=== PATIENT | female | born 1950 | race Caucasian/White ===

== ENCOUNTER → 2020-01-21 11:56 | Outpatient (BNVA) | payer MEDICARE, SELFPAY | PROVIDERS: PCP Nurse Practitioner Family; Referring Provider Nurse Practitioner Family; Visit Provider Internal Medicine Cardiovascular Disease | DX: I35.1 Nonrheumatic aortic (valve) insufficiency (principal) | CPT/HCPCS: 99212 ==

== ENCOUNTER → 2020-02-12 13:43 | Outpatient (REF) | payer MEDICARE, SELFPAY ==
--- NOTE | 2020-02-12 13:46 | CA_ITS ---
Transthoracic Echocardiogram Patient (Last, First, Middle): Donna Hua E Gender: Female Date of : 1950 Age: 69 Procedure Date: 02/12/2020 Procedure Type: Transthoracic Echocardiogram Location: OP Height: 157.48 cm Weight: 79.83 kg BSA: 1.81 m2 Heart Rate: bpm BP: 124 / 77 mmHg Dye Box Operator: Referring MD: Kelechi Root MD Symptoms: I35.1 - Nonrheumatic aortic (valve) insufficiency Study Quality: Fair ECG Rhythm: Sinus Conclusions: - The left ventricular systolic function is low normal. The visually estimated ejection fraction is between 50-55%. - There is mild aortic valve regurgitation. Findings Left Ventricle Normal left ventricular cavity size. There is mildly increased left ventricular wall thickness. The left ventricular systolic function is low normal. The visually estimated ejection fraction is between 50-55%. There is no evidence of regional wall motion abnormalities. E/E prime ratio is <8, consistent with normal filling pressures. Evidence suggests grade I (mild) diastolic dysfunction. Right Ventricle Normal right ventricular cavity size and systolic function. Atria The left atrium is normal in size. The right atrium is normal in size. Aortic Valve The aortic valve was not well visualized. There is no aortic valve stenosis. There is mild aortic valve regurgitation. Mitral Valve The mitral valve appears normal. There is trace mitral valve regurgitation. There is no mitral valve stenosis. Pulmonic Valve The pulmonic valve was not well visualized. Tricuspid Valve Normal tricuspid valve structure. There is trace tricuspid valve regurgitation. The pulmonary artery systolic pressure is normal. Great Vessels The aortic annulus, sinuses of valsalva, and asc aorta are normal in size. Venous The inferior vena cava is normal in size and collapses greater than 50% with inspiration. Pericardium/Pleural There is no evidence of pericardial effusion. Prior Study Comparison No significant change compared to prior study dated: 03/23/2019. LVEF appears similar on visual comparison of images. Recommendations, Care & Conclusions Recommend contrast in the future to improve endocardial definition. Measurements 2D Linear Measurements IVSd: 1.24 0.6-0.9/0.6-1.0 cm LVIDd: 3.66 3.9-5.3/4.2-5.9 cm LVIDd Index: 2.02 2.4-3.2/2.2-3.1 cm/m2 LVIDs: 2.33 2.0-3.6 cm LVPWd: 1.22 0.7-1.1 cm Ao Root: 3.20 2.1-3.5 cm LA Diam: 2.60 2.7-3.8/3.0-4.0 cm LAIDs Index: 1.44 1.5-2.3 cm/m2 LV Mass: 187.40 67-162/88-224 g LV Mass Index: 103.54 43-95/49-115 g/m2 LVOT Diam: 2.20 3.0+(-)1.3 cm 2D Systolic Function EF 4C: 30.30 >55% EF 2C: 49.70 >55% Mitral Valve MV Pk E: 0.45 MV PK A: 0.63 MV Decel Time: 236.00 E/A: 0.70 E'Lateral: 9.77 E'Medial: 5.32 E/E' Med: 8.50 E/E' Lat: 4.60 PHT: 69.00 MVA PHT: 3.19 Decel Queens: 1.91 Aortic Valve AoV Pk Ke: 1.18 AoV Mn Ke: 0.82 AoV VTI: 0.25 AoV Pk Grad: 6.00 Aov Mn Grad: 3.00 BEATA Cont.VTI: 3.09 LVOT LVOT Pk Ke: 0.98 LVOT Mn Ke: 0.61 LVOT VTI: 0.20 LVOT Pk Grad: 4.00 LVOT Mn Grad: 2.00 LVOT Diam: 2.20 LVOT Area: 3.80 Diastolic Function MV Pk E: 0.45 MV Pk A: 0.63 E/A: 0.70 E'Medial: 5.32 E/E' Med: 8.50 E' Laterial: 9.77 E/E' Lat: 4.60 Tricuspid Valve TR Pk Ke: 2.16 TR Pk Grad: 19.00 RA Press: 3.00 RVSP: 21.00 Great Vessels Aorta Ao Root-2D: 3.20 2.0-3.7 cm Pulmonary Valve PV Pk Ke: 0.86 Peak PV Grad: 3.00 Updated in Other Vendor System with Status of Final Winston Saul MD electronically signed on 02/12/2020 4:30:17 PM with status of Final
== END ==
LOC: HO.CARD 13:43
PROVIDERS: PCP Nurse Practitioner Family; Visit Provider Internal Medicine Cardiovascular Disease
DX: I35.1 Nonrheumatic aortic (valve) insufficiency (principal)
CPT/HCPCS: 93306

== ENCOUNTER 2020-04-02 11:00 | Outpatient (RCR) | payer MEDICARE, SELFPAY | END 2020-04-02 16:47 | disposition other institution (70) | LOC: HO.PT 11:00 | PROVIDERS: Visit Provider Nurse Practitioner Primary Care | DX: M54.42 Lumbago with sciatica, left side (principal); M54.41 Lumbago with sciatica, right side | CPT/HCPCS: 97110; 97162 ==

== ENCOUNTER 2020-07-03 08:43 | Outpatient (REF) | payer MEDICARE, SELFPAY ==
[2020-07-03 08:48] VITALS: BP 150/73; PULSE 82; RESP 16; TEMP 36.4; O2SAT 96
[2020-07-03 08:50] VITALS: BMI 32.7
[2020-07-03 09:12] VITALS: BP 142/71; PULSE 82; RESP 16; O2SAT 97
--- NOTE | 2020-07-03 10:31 | OP_ITS ---
SURGEON: Benny Sanabria MD INDICATIONS: G-tube malfunction. PREOPERATIVE DIAGNOSIS: POSTOPERATIVE DIAGNOSIS: PROCEDURE PERFORMED: G-tube replacement. ESTIMATED BLOOD LOSS: COMPLICATIONS: ANESTHESIA: ASSISTANTS: SPECIMENS: MEDICATIONS: None. DESCRIPTION OF PROCEDURE: History and physical performed. The risks and benefits of the procedure were explained to the patient. Informed consent was obtained. The patient was placed on the exam table in the supine position. The G-tube site was examined and found to be intact with some mild erythema at the site. The old G-tube was removed and a new 18-Swazi replacement G-tube was placed after lubricating the tip of the new G-tube. The balloon was inflated with 10 mL water and aspiration confirmed intragastric placement. Bacitracin and dry sterile dressing were applied. She tolerated the procedure well. IMPRESSION: G-tube replacement. RECOMMENDATION: Follow up as needed. MD NNA Clifford/MODL / [id number]
== END 2020-07-03 08:44 | disposition home or self-care (01) ==
LOC: HO.MS 08:43
PROVIDERS: Visit Provider Internal Medicine Gastroenterology
PROC: (CPT 43762; principal; 2020-07-03 09:00)
DX: K94.23 Gastrostomy malfunction (principal); Z79.899 Other long term (current) drug therapy; Z91.040 Latex allergy status
CPT/HCPCS: 43762

== ENCOUNTER 2020-10-14 11:00 | Outpatient (RCR) | payer MEDICARE, SELFPAY | END 2020-10-30 18:18 | disposition home or self-care (01) | LOC: HO.PT 11:00 | PROVIDERS: PCP Nurse Practitioner Primary Care; Visit Provider Nurse Practitioner Primary Care | DX: M54.41 Lumbago with sciatica, right side (principal) | CPT/HCPCS: 97110; 97112; 97150; 97162 ==

== ENCOUNTER 2021-01-05 13:03 | Outpatient (REF) | payer MEDICARE, SELFPAY ==
--- NOTE | ~2021-01-05 | MM_ITS ---
EXAMINATION: MM SCREENING DIGITAL BREAST TOMOSYNTHESIS, BILATERAL CLINICAL INFORMATION: Screening. Asymptomatic. The lifetime risk of breast cancer based on the Tyrer-Cuzick Model is 3%. COMPARISON: Mammography: 10/15/2019, 10/09/2018, 09/07/2017, 07/22/2016 TECHNIQUE: Digital breast tomosynthesis is performed in both the craniocaudal and mediolateral oblique views along with computer-aided detection (CAD). Synthesized 2D images are generated from the tomosynthesis. FINDINGS: There are scattered areas of fibroglandular density (ACR BI-RADS breast composition Category b). There are no significant masses, abnormal calcifications, or other abnormalities. Parenchymal pattern is similar to prior studies. No developing density. No significant changes. MM/MM tomosynthesis screening BI IMPRESSION: No mammographic evidence of malignancy. ASSESSMENT: BI-RADS 1: Negative RECOMMENDATION: Routine annual mammography screening. This patient's information was entered into a reminder system with a target due date for their next mammogram.
== END 2021-01-05 13:04 | disposition home or self-care (01) ==
LOC: HO.MAMMO 13:03
PROVIDERS: PCP Nurse Practitioner Primary Care; Visit Provider Nurse Practitioner Primary Care
DX: Z12.31 Encounter for screening mammogram for malignant neoplasm of breast (principal)
CPT/HCPCS: 77063; 77067

== ENCOUNTER → 2021-01-21 10:49 | Outpatient (BNVA) | payer MEDICARE, SELFPAY | PROVIDERS: PCP Nurse Practitioner Primary Care; Referring Provider Nurse Practitioner Primary Care; Visit Provider Internal Medicine Cardiovascular Disease | DX: I35.1 Nonrheumatic aortic (valve) insufficiency (principal) | CPT/HCPCS: 93005; 99212 ==

== ENCOUNTER 2021-02-05 12:48 | Outpatient (REF) | payer MEDICARE, SELFPAY ==
--- NOTE | ~2021-02-05 | MM_ITS ---
EXAMINATION: BONE DENSITOMETRY CLINICAL INDICATION: Asymptomatic menopausal state. COMPARISON: Previous BD dated 05/11/2018 and baseline BD dated 04/26/2006. TECHNIQUE: Using a [employer] DXA System (software version: 13.1) manufactured by [employer], dual-energy x-ray absorptiometry was performed of the lumbar spine and left hip. The images are of good technical quality. Summary results are attached. FINDINGS: AP SPINE L1-L4: Current: BMD 1.046 g/cm2, Z-score 0.2, T-score -1.1, osteopenia, 3.3% decrease from previous, 9.3% decrease from baseline (<5% change is not significant). Prior: BMD 1.082 g/cm2. Baseline: BMD 1.153 g/cm2. LEFT FEMUR, NECK: Current: BMD 0.982 g/cm2, Z-score 1.1, T-score -0.4, normal. Prior: BMD 0.926 g/cm2. Baseline: BMD 1.068 g/cm2. LEFT FEMUR, TOTAL: Current: BMD 1.037 g/cm2, Z-score 1.5, T-score 0.2, normal, 5.0% increase from previous, 6.7% decrease from baseline (<5% change is not significant). Prior: BMD 0.988 g/cm2. Baseline: BMD 1.111 g/cm2. IDENTIFIED RISK FACTORS: Menopause, rheumatoid arthritis. HISTORY OF FRACTURE: None listed. MEDICATIONS: None listed. MM/XR DEXA axial skeleton IMPRESSION: 1. DIAGNOSIS: Osteopenia based on the lowest T-score value of -1.1 in the lumbar spine applying World Health Organization criteria. 2. 10-YEAR FRACTURE RISK PREDICTION, FRAX: Major osteoporotic fracture (clinical spine, forearm, hip or shoulder) 5.5%. Hip fracture 0.5%. 3. Treatment Recommendations: NOF guidelines recommend consideration for treatment in postmenopausal women and men age 50 and older presenting with the following: -A hip or vertebral (clinical or morphometric) fracture. -T-score less than or equal to -2.5 at the femoral neck or spine after appropriate evaluation to exclude secondary causes. -Low bone mass at the hip or spine and a 10-year fracture probability by FRAX of greater than or equal to 3% for hip fracture or greater than or equal to 20% for major osteoporotic fracture based on the [place] adapted WHO algorithm. 4. Other Recommendations: All treatment decisions require clinical judgment and consideration of individual patient factors, including patient preferences, comorbidities, previous drug use, risk factors not captured in the FRAX model (e.g. frailty, falls, vitamin D deficiency, increased bone turnover, interval significant decline in bone density) and possible under or overestimation of fracture risk by FRAX. Additional medical evaluation for secondary cause of low bone mineral density may be appropriate. FUTURE SCAN RECOMMENDATION: People with diagnosed cases of osteoporosis or at high risk for fracture should have regular bone mineral density tests. For patients eligible for Medicare, routine testing is allowed once every 2 years. The testing frequency can be increased to one year for patients who have rapidly progressing disease, those who are receiving or discontinuing medical therapy to restore bone mass, or have additional risk factors.
== END 2021-02-05 12:49 | disposition home or self-care (01) ==
LOC: HO.MAMMO 12:48
PROVIDERS: Visit Provider Nurse Practitioner Primary Care
DX: Z13.820 Encounter for screening for osteoporosis (principal); M85.80 Other specified disorders of bone density and structure, unspecified site; Z78.0 Asymptomatic menopausal state; M05.9 Rheumatoid arthritis with rheumatoid factor, unspecified
CPT/HCPCS: 77080

== ENCOUNTER 2021-03-26 08:52 | Outpatient (REF) | payer MEDICARE, SELFPAY ==
[2021-03-26 08:59] VITALS: BMI 31.2
[2021-03-26 09:00] VITALS: BP 124/73; PULSE 87; RESP 16; TEMP 36.6; O2SAT 97
[2021-03-26 09:40] VITALS: BP 139/73; PULSE 85; RESP 16; O2SAT 98
--- NOTE | 2021-03-26 11:40 | OP_ITS ---
SURGEON: Benny Sanabria MD INDICATIONS: Dysphagia and G-tube malfunction. PREOPERATIVE DIAGNOSIS: POSTOPERATIVE DIAGNOSIS: PROCEDURE PERFORMED: ESTIMATED BLOOD LOSS: COMPLICATIONS: ANESTHESIA: ASSISTANTS: SPECIMENS: PROCEDURE: G-tube replacement. MEDICATIONS: None. DESCRIPTION OF PROCEDURE: History and physical performed. The risks and benefits of the procedure were explained to the patient. Informed consent was obtained. The patient was placed supine on the exam table. The G-tube site was inspected. There was some mild erythema around the G-tube site where the bumper abutted the skin. The nonfunctioning G-tube was removed after the balloon was deflated and a new 18-Maori replacement tube was tested and lubricated. The tube was inserted into the G-tube tract and the balloon was inflated with 10 cc of saline. Position was checked with the tube being flushed first with air and then with saline. The tube flushed well. The site was secured with bacitracin ointment and a dry sterile dressing. IMPRESSION: G-tube replacement. RECOMMENDATION: 1. Follow up as needed. 2. The tube may be replaced on a p.r.n. basis. MD NNA Clifford/BECKY / [id number] MTDD
== END 2021-03-26 08:53 | disposition home or self-care (01) ==
LOC: HO.MS 08:52
PROVIDERS: PCP Nurse Practitioner Primary Care; Visit Provider Internal Medicine Gastroenterology
PROC: (CPT 43762; principal; 2021-03-26 09:30)
DX: K94.23 Gastrostomy malfunction (principal); R13.10 Dysphagia, unspecified; Y83.3 Surgical operation with formation of external stoma as the cause of abnormal reaction of the patient, or of later complication, without mention of misadventure at the time of the procedure; Y73.1 Therapeutic (nonsurgical) and rehabilitative gastroenterology and urology devices associated with adverse incidents; Y92.9 Unspecified place or not applicable; Z91.040 Latex allergy status
CPT/HCPCS: 43762

== ENCOUNTER 2021-04-09 15:50 | Emergency (ER) | payer MEDICARE, SELFPAY ==
[2021-04-09 15:54] VITALS: PULSE 82; RESP 18; TEMP 36.7; O2SAT 98; BMI 31.1
--- NOTE | 2021-04-09 17:22 | ED_ITS ---
HPI - General Adult General Chief complaint: General Medical Stated complaint: Rash Time Seen by Provider: 04/09/21 16:59 Source: patient Mode of arrival: ambulatory History of Present Illness HPI narrative: 70-year-old female with a past medical history G2 s/p replacement on 03/26, presenting to the ED complaining of pruritic abdominal rash x2 weeks. Reports rash started after G-tube replacement. Denies complications of G-tube, drainage from rash, fever, chills, new exposures/lotions or detergents, new dressings. Patient with known allergy to latex Onset (ago): week(s) Location: abdomen Related Data Home Medications Medication Instructions Recorded Confirmed clonazepam 0.5 mg tablet 0.5 mg PO DAILY PRN 01/21/20 01/21/21 fluticasone propionate 110 0 mcg INHALATION 01/21/20 01/21/21 mcg/actuation HFA aerosol inhaler fluticasone propionate 50 0 mcg INTRANASAL 01/21/20 01/21/21 mcg/actuation nasal spray,suspension lansoprazole 30 mg capsule,delayed 30 mg PO DAILY 01/21/20 01/21/21 release nortriptyline 25 mg capsule 25 mg PO BEDTIME 01/21/20 01/21/21 Previous Rx's Medication Instructions Recorded triamcinolone acetonide 0.025 % 1 appl TOPICAL BID #80 g 04/09/21 topical ointment Allergies Allergy/AdvReac Type Severity Reaction Status Date / Time latex [LATEX] Allergy Unknown RASH Unverified 12/06/19 17:27 Review of Systems Review of Systems: Constitutional: No Fever, No Chills ENT/Mouth: No Ear Pain, No Nasal Congestion, No sore throat, No Rhinorrhea, No Swallowing Difficulty Cardiovascular: No Chest Pain, No SOB Respiratory: No Cough Gastrointestinal: No Nausea, No Vomiting, No Diarrhea, No Abdominal pain Musculoskeletal: No joint pain, No Myalgias, No Joint Swelling Skin: No Skin Lesions, + rash Neuro: No Weakness, No Numbness, No Paresthesias Yes all other systems are reviewed and are negative [facility] Past Medical History Attestation statement: The following information was validated with the patient. Medical History Feeding by G-tube Surgical History H/O section H/O neck surgery History of throat surgery Family History Family History Father No problems noted. Mother No problems noted. Social History Social History Advance Directives: No Advance Directives Information Provided: No Physical Exam Vital Signs: Vital Signs: Last Vital Signs Temp 98.0 F 04/09/21 15:54 Pulse 82 04/09/21 15:54 Resp 18 04/09/21 15:54 Pulse Ox 98 04/09/21 15:54 BMI result Body Mass Index 31.1 Const: General: cooperative, healthy appearing, comfortable and no acute distress Orientation/consciousness: patient oriented x3 Limitations: no limitations HENMT: Other: No mucous membrane involvement Head: Yes normal to inspection, Yes normocephalic and Yes atraumatic Ears: hearing grossly normal bilaterally General nose exam: Normal external nose present Face and sinus: Yes normal facial exam Mouth: Normal oral and palatal mucosa present, no drooling and no muffled voice Eyes: General: appearance normal, both eyes and all related structures EOM: EOMs intact bilaterally Neck: Neck: Yes normal visual inspection and Yes no meningeal signs Resp: Effort & Inspection: normal respiratory effort, able to speak in complete sentences, not labored and no stridor Auscultation: clear to auscultation bilaterally Cardio: Rate: regular rate Heart sounds: S1 normal heart sound present and S2 normal heart sound present GI: Inspection: Yes normal to inspection Palpation (GI): Soft to palpation, nontender, no guarding and not rigid Skin: Other: + coalescing maculopapular rash noted to abdomen surrounding G- tube site and under bra line. No pustules. No warmth/fluctuance/induration, no scaling Rashes: rashes noted Wounds: no wounds Neuro: General: patient oriented x3 and no meningeal signs Gait exam (Neuro): Normal gait present Extrem: General: Yes normal to inspection Medical Decision Making MDM Narrative Medical decision making narrative: 70-year-old female with a past medical history G2 s/p replacement on 03/26, presenting to the ED complaining of pruritic abdominal rash x2 weeks. On exam vital signs stable, NAD, physical exam as above consistent with contact/irritant dermatitis. Suspected from dressing applied after G-tube replacement vs tape or other topical agents. Not c/w tinea Plan: Topical steroids Medical Records Medical records reviewed: Yes I reviewed the patient's medical records. Lab Data Lab results reviewed: Yes I reviewed the patient's lab results. Discharge Plan Discharge Clinical Impression: Contact dermatitis Qualifiers: Contact dermatitis type: irritant Contact dermatitis trigger: unspecified trigger Qualified Code(s): L24.9 - Irritant contact dermatitis, unspecified cause Patient Disposition: Home, Self-Care Instructions: Contact Dermatitis (ED) Additional Instructions: You have contact/irritative dermatitis. Triamcinolone is a topical steroid, apply as directed. Avoid application too close to G-tube site if area begins to look infected, is red, there is drainage, it is spreading please return to the emergency department. Please follow-up with her primary care doctor Avoid any dressing application to area for the next 5-7 days Prescriptions: New triamcinolone acetonide 0.025 % ointment 1 appl topical BID Qty: 80 RF: 0 No Action lansoprazole 30 mg capsule,delayed release(DR/EC) 30 mg PO DAILY RF: 0 clonazepam 0.5 mg tablet 0.5 mg PO DAILY PRNRF: 0 nortriptyline 25 mg capsule 25 mg PO BEDTIME RF: 0 fluticasone propionate 50 mcg/actuation spray,suspension 0 mcg intranasal RF: 0 Flovent HFA 110 mcg/actuation HFA aerosol inhaler 0 mcg inhalation RF: 0 Referrals: Carolina Robbins NP [Primary Care Provider] - 3 days
== END 2021-04-09 17:58 | disposition home or self-care (01) ==
PROVIDERS: Emergency Provider Internal Medicine; PCP Nurse Practitioner Primary Care
DX: L24.9 Irritant contact dermatitis, unspecified cause (principal); L29.9 Pruritus, unspecified
CPT/HCPCS: 99283

== ENCOUNTER → 2021-06-24 12:31 | Outpatient (REF) | payer OTHER, SELFPAY ==
--- NOTE | 2021-06-24 12:37 | ECG_ITS ---
Hook-up date: 2021-06-24 12:06:00 Duration: 25:45:00 Test Indications: PALPITATIONS Medications: [id number] QRS complexes 8 Ventricular ectopics which represent <1 % of total QRS comp. 535 Supraventricular ectopics which represent <1 % of total QRS comp. * Paced QRS complexs which represent % of total QRS comp. VENTRICULAR ECTOPY 8 Isolated 0 Bigeminal Cycles 0 Couplets 0 Runs 0 Beats in Runs * Beats LONGEST at * BPM at :: -- * Beats FASTEST at * BPM at :: -- SUPRAVENTRICULAR ECTOPY 517 Isolated 9 Couplets 0 Runs 0 Beats in Runs * Beats LONGEST at * BPM at :: -- * Beats FASTEST at * BPM at :: -- HEART RATES 62 MIN at 01:21:36 2021-06-25 87 AVG 131 MAX at 10:33:23 2021-06-25 LONGEST RR 1.0000 secs at 01:19:21 2021-06-25 S-T LEVELS Channel 1 - 128 mm at 12:06:00 2021-06-24 - 128 mm at 12:06:00 2021-06-24 Channel 2 - 128 mm at 12:06:00 2021-06-24 - 128 mm at 12:06:00 2021-06-24 Channel 3 - 128 mm at 03:12:51 -- - 128 mm at 03:12:51 Basic rhythm Normal sinus rhythm No long pause or profound bradycardia Occasional Premature atrial complexes No diary submitted Referred By: Carolina Robbins Overread By: VIDYA DRAKE MD
== END ==
LOC: HO.CARD 12:31
PROVIDERS: Visit Provider Nurse Practitioner Primary Care
DX: R00.2 Palpitations (principal)
CPT/HCPCS: 93225; 93226

== ENCOUNTER 2021-07-21 10:07 | Day surgery (SDC) | payer OTHER, SELFPAY ==
[2021-07-16 11:54] VITALS: BMI 31.4
--- NOTE | 2021-07-16 13:25 | HO.ANESPROP2 ---
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 Mother No problems noted. 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 If so, by whom?: No Are you DNR?: No Advance Directives: No Advance Directives Information Provided: Yes Advance Directives on File: No Nutrition Risks: Receiving home tube feeding or CPN Meds Allergies Allergy/AdvReac Type Severity Reaction Status Date / Time latex [LATEX] Allergy Unknown RASH Verified 07/16/21 11:48 Home Medications Medication Instructions Recorded Confirmed Last Taken Type clonazepam 0.5 mg tablet 0.5 mg PO DAILY PRN 01/21/20 07/16/21 Unknown History fluticasone propionate 110 2 puff INHALATION Q4-6H PRN 01/21/20 07/16/21 Unknown History mcg/actuation HFA aerosol inhaler fluticasone propionate 50 1 spray INTRANASAL BID PRN 01/21/20 07/16/21 Unknown History mcg/actuation nasal spray,suspension lansoprazole 30 mg capsule,delayed 30 mg PO DAILY 01/21/20 01/21/21 Unknown History release nortriptyline 25 mg capsule 25 mg PO BEDTIME 01/21/20 07/16/21 Unknown History Exam Exam Date and Time: July 16, 2021 1325 Height,Weight and Vital Signs: Height 5 ft 2 in Weight 78.018 kg Narrative Narrative: EKG 01/2021 NSR 90/min, rightward axis, Nonspecific ST changes, QTc 445 msec. ECHO 01/2020 Conclusions: - The left ventricular systolic function is low normal.? The ? ? visually estimated ejection fraction is between 50-55%.? - There is mild aortic valve regurgitation.? Holter 06/2021 Basic rhythm Normal sinus rhythm No long pause or profound bradycardia Occasional Premature atrial complexes No diary submitted Assessment and Plan Assessment Anesthesia Assessment: Chart Reviewed Documented by User: Bárbara Woodard MD 07/21/21 12:51 [facility] Past Medical History Medical History (Updated 07/16/21 @ 11:57 by Mari Montana RN) Asthma Degenerative joint disease Dysphagia Feeding by G-tube Gastritis GERD (gastroesophageal reflux disease) History of palpitations Hx of cataract Paraganglioma Urinary incontinence Family History Family History Father No problems noted. Mother No problems noted. 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 If so, by whom?: No Are you DNR?: No Advance Directives: No Advance Directives Information Provided: Yes Advance Directives on File: No Nutrition Risks: Receiving home tube feeding or CPN Meds Allergies Allergy/AdvReac Type Severity Reaction Status Date / Time latex [LATEX] Allergy Unknown RASH Verified 07/16/21 11:48 Home Medications Medication Instructions Recorded Confirmed Last Taken Type clonazepam 0.5 mg tablet 0.5 mg PO DAILY PRN 01/21/20 07/16/21 Unknown History fluticasone propionate 110 2 puff INHALATION Q4-6H PRN 01/21/20 07/16/21 Unknown History mcg/actuation HFA aerosol inhaler fluticasone propionate 50 1 spray INTRANASAL BID PRN 01/21/20 07/16/21 Unknown History mcg/actuation nasal spray,suspension lansoprazole 30 mg capsule,delayed 30 mg PO DAILY 01/21/20 01/21/21 Unknown History release nortriptyline 25 mg capsule 25 mg PO BEDTIME 01/21/20 07/16/21 Unknown History Exam Height,Weight and Vital Signs: Height 5 ft 2 in Weight 78.018 kg Vital Signs Temp Pulse Resp BP Pulse Ox 07/21/21 10:32 97.2 F 79 18 124/72 95 Airway Mallampati Class: III TM Dist: >3cm Neck ROM: Full Denture: Upper Loose/Missing/Broken Teeth: Yes (Only few teeth bottom) Heart: RRR Lungs: CTAB Assessment and Plan Assessment Anesthesia Assessment: Anesthesia Plan Discussed Final Anesthetic Review Family History of Problems with Anesthesia: No History of Problems with Anesthesia: No NPO: Yes ASA Class: III Final Preanesthetic Review: No Changes in Pt Med Stat, Meds/Allgs Chart Reviewed, Consent Obtained/Reviewed and Anes Risks/Benef Reviewed Patient Risk: Intermediate Procedure Risk: Low Assessment/Block/Sedation in SS: Assess/Block/Sedation-SS Anesthetic Plan Anesthetic Plan: MAC: Disposition: Standard PACU
[2021-07-21 10:32] VITALS: BP 124/72; PULSE 79; RESP 18; TEMP 36.2; O2SAT 95
[2021-07-21] MEDS: Lactated Ringers 1,000 ML 100 ML IVCONT (10:54)
--- NOTE | 2021-07-21 12:33 | MHC.SHP ---
Pre-Procedural Eval Section A Date of Service: 07/21/21 Section B Chief Complaint: screening Details of Present Illness: see H&P no changes Relevant Family History (Specify if Yes): No Relevant Social History: None Present Medications: see Short Stay Collaborative assessment Medical History: No relevant PMH History of Previous Operations: No relevant previous surgery Allergies: Allergies Allergy/AdvReac Type Severity Reaction Status Date / Time latex [LATEX] Allergy Unknown RASH Verified 07/16/21 11:48 Review of Systems Sugical H&P ROS: Negative: Constitution, Cardiovascular, Respiratory, Neurological, Psychiatric, Hem-Onc, Allergic/Immunologic, Gastrointestinal, Genitourinary, Musculoskeletal, Integumentary, Endocrine and Eyes/Ears/Nose/Throat Exam Surgical H&P Exam: Normal: HEENT, Normal: Heart, Normal: Lungs, Normal: Extremities, Normal: Abdomen, Normal: Skin and Normal: Neurological Plan Diagnosis/Plan: Unchanged I have reviewed the history and physical and performed a pertinent physical examination on my patient. No changes have occurred unless specified.
--- NOTE | 2021-07-21 13:17 | PM.OP ---
Brief Operative Note Date of Service: 07/21/21 Pre-op diagnosis: screening Post-op diagnosis: same (colon polyp) Procedure: colonoscopy Surgeon: Benny Sanabria Anesthesia: MAC Was an Product Sales Representative used for this Procedure?: No Estimated blood loss (mL): 2 Pathology: none sent (polyp x1) Condition: stable Disposition: PACU
[2021-07-21 13:20] VITALS: BP 129/79; PULSE 77; RESP 16; TEMP 36.8; O2SAT 98
[2021-07-21 13:35] VITALS: BP 133/72; PULSE 70; RESP 18; O2SAT 97
[2021-07-21 13:54] VITALS: BP 144/71; PULSE 71; RESP 20; TEMP 37.1; O2SAT 97
--- NOTE | 2021-07-22 00:22 | OP_ITS ---
SURGEON: Benny Sanabria MD INDICATIONS: Colon cancer screening and prior history of adenomatous colon polyps. PREOPERATIVE DIAGNOSIS: POSTOPERATIVE DIAGNOSIS: PROCEDURE PERFORMED: Colonoscopy to the terminal ileum with snare polypectomy. ESTIMATED BLOOD LOSS: COMPLICATIONS: ANESTHESIA: ASSISTANTS: SPECIMENS: MEDICATIONS: Monitored anesthesia care. DESCRIPTION OF PROCEDURE: History and physical performed. The risks and benefits of the procedure were explained to the patient. Informed consent was obtained. The patient was placed in the left lateral decubitus position. A digital rectal exam was performed and was found to be normal. The Olympus pediatric video colonoscope was introduced into the rectum and advanced to the cecum without difficulty. The cecum was identified by transillumination, palpation, and identification of the ileocecal valve. Examination was performed. The scope was removed. She tolerated the procedure well. She returned to the recovery area in stable condition. FINDINGS: The terminal ileum was normal. The visualized colonic mucosa was normal. The quality of the prep was good. In the cecum just above the ileocecal valve was an 8 mm sessile polyp, which was removed with a snare. The base was cauterized. The polyp was recovered via suction. A less than 5 mm polyp at 65 cm was biopsied. No other polyps were identified. Retroflexed examination showed some internal hemorrhoids. IMPRESSION: Colon polyp. RECOMMENDATION: Follow up the biopsy results. MD NAN Clifford/BECKY / [id number] MTDD
== END 2021-07-21 14:31 | disposition home or self-care (01) ==
PROVIDERS: PCP Nurse Practitioner Primary Care; Visit Provider Internal Medicine Gastroenterology
PROC: 0DJD8ZZ Inspection of Lower Intestinal Tract, Via Natural or Artificial Opening Endoscopic (ICD-10-PCS; CPT 45378; principal; 2021-07-21 11:40)
DX: Z12.11 Encounter for screening for malignant neoplasm of colon (principal); Z86.010 Personal history of colon polyps; D12.0 Benign neoplasm of cecum; K63.5 Polyp of colon; K64.8 Other hemorrhoids; K21.9 Gastro-esophageal reflux disease without esophagitis; Z93.1 Gastrostomy status; J45.909 Unspecified asthma, uncomplicated; R32 Unspecified urinary incontinence; J38.00 Paralysis of vocal cords and larynx, unspecified; R13.10 Dysphagia, unspecified; Z86.03 Personal history of neoplasm of uncertain behavior; Z79.899 Other long term (current) drug therapy; Z91.040 Latex allergy status
CPT/HCPCS: 45385; 88305

== ENCOUNTER 2021-09-08 14:50 | Outpatient (REF) | payer OTHER, SELFPAY ==
--- NOTE | ~2021-09-08 | XR_ITS ---
EXAMINATION: XR CHEST CLINICAL INFORMATION: Shortness of breath COMPARISON: Previous chest x-ray July 2018 TECHNIQUE: 2 views of the chest were obtained. FINDINGS: No significant abnormality is noted involving the heart, lungs, mediastinum, bony thorax or soft tissues. XR/XR chest 2V IMPRESSION: Unremarkable examination.
--- NOTE | ~2021-09-08 | XR_ITS ---
EXAMINATION: XR ABDOMEN COMPLETE CLINICAL INDICATION: Presence of other specified devices COMPARISON: Previous x-ray June 2018 TECHNIQUE: 2 views of the abdomen. FINDINGS: There is a G-tube projects over the stomach. There are no dilated loops of bowel. There is no evidence of free air. There are degenerative changes of the lower lumbar spine. XR/XR abdomen min 2V IMPRESSION: G-tube projects over stomach.
== END 2021-09-08 14:51 | disposition home or self-care (01) ==
LOC: HO.XRAY 14:50
PROVIDERS: PCP Nurse Practitioner Primary Care; Visit Provider Emergency Medicine
DX: R06.02 Shortness of breath (principal); Z93.1 Gastrostomy status
CPT/HCPCS: 71046; 74019

== ENCOUNTER 2022-01-15 10:16 | Outpatient (REF) | payer OTHER, SELFPAY ==
--- NOTE | ~2022-01-15 | MM_ITS ---
EXAMINATION: MM SCREENING DIGITAL BREAST TOMOSYNTHESIS, BILATERAL CLINICAL INFORMATION: Screening. Asymptomatic. The lifetime risk of breast cancer based on the Tyrer-Cuzick Model is 3%. COMPARISON: Mammography: 01/05/2021, 10/15/2019, 10/09/2018 TECHNIQUE: Digital breast tomosynthesis is performed in both the craniocaudal and mediolateral oblique views along with computer-aided detection (CAD). Synthesized 2D images are generated from the tomosynthesis. FINDINGS: There are scattered areas of fibroglandular density (ACR BI-RADS breast composition Category b). There are no significant masses, abnormal calcifications, or other abnormalities. Parenchymal pattern is similar to prior studies. There is no developing density or architectural abnormality. The axilla and skin contours are unremarkable. No significant changes. MM/MM tomosynthesis screening BI IMPRESSION: No mammographic evidence of malignancy. ASSESSMENT: BI-RADS 1: Negative RECOMMENDATION: Routine annual mammography screening. This patient's information was entered into a reminder system with a target due date for their next mammogram.
== END 2022-01-15 10:17 | disposition home or self-care (01) ==
LOC: HO.MAMMO 10:16
PROVIDERS: Visit Provider Nurse Practitioner Primary Care
DX: Z12.31 Encounter for screening mammogram for malignant neoplasm of breast (principal)
CPT/HCPCS: 77063; 77067

== ENCOUNTER → 2022-04-28 13:00 | Outpatient (BNVA) | payer OTHER, SELFPAY | PROVIDERS: PCP Nurse Practitioner Primary Care; Referring Provider Nurse Practitioner Primary Care; Visit Provider Internal Medicine Cardiovascular Disease | DX: I35.1 Nonrheumatic aortic (valve) insufficiency (principal) | CPT/HCPCS: 93005; 99212 ==

== ENCOUNTER 2022-05-05 19:58 | Emergency (ER) | payer OTHER, SELFPAY ==
--- NOTE | ~2022-05-05 | XR_ITS ---
EXAMINATION: XR ABDOMEN KUB CLINICAL INDICATION: G-tube placement. Gastrografin injected. COMPARISON: 09/08/2021 TECHNIQUE: AP view of the abdomen. FINDINGS: Gastrostomy tube in place. Contrast fills the stomach, consistent with intragastric positioning. Contrast extends throughout a portion of the small bowel. No bowel obstruction. The lung bases are clear. No acute osseous abnormality. XR/XR KUB IMPRESSION: Intragastric positioning of the gastrostomy tube.
[2022-05-05 21:06] VITALS: BP 147/73; PULSE 79; RESP 18; TEMP 36.6; O2SAT 96; BMI 32.1
[2022-05-06] VITALS: BP 162/77; PULSE 71; RESP 16; TEMP 36.6; O2SAT 98
--- NOTE | 2022-05-06 00:05 | PC.NURSE ---
this rn present at bedside with dr pierson during feeding tube reinsertion. pt tolerated well. awaiting kub
--- NOTE | 2022-05-06 00:28 | ED_ITS ---
HPI - General Adult General Chief complaint: General Medical Stated complaint: feeding tube came out Time Seen by Provider: 05/05/22 23:17 Source: patient and family () Mode of arrival: ambulatory Limitations: no limitations History of Present Illness HPI narrative: 71-year-old female history of ENT tumor has a gastrostomy feeding tube that was dislodged today, patient is here today for placing the G-tube. Related Data Home Medications Medication Instructions Recorded Confirmed fluticasone propionate 110 2 puff inhalation Q4-6H PRN 01/21/20 04/28/22 mcg/actuation HFA aerosol inhaler Shortness Of Breath Or Wheezing calcium carbonate 600 mg-vitamin 1 tab PO BID 04/28/22 04/28/22 D3 10 mcg (400 unit) tablet nortriptyline 50 mg capsule 50 mg PO BEDTIME 04/28/22 04/28/22 Previous Rx's Medication Instructions Recorded triamcinolone acetonide 0.025 % 1 appl topical BID #80 grams 04/09/21 topical ointment Allergies Allergy/AdvReac Type Severity Reaction Status Date / Time latex [LATEX] Allergy Unknown RASH Verified 05/05/22 21:10 Review of Systems Review of Systems: All other systems are reviewed and are negative Constitutional: Reports as per HPI and Reports no additional constitutional complaints Eyes: Reports as per HPI and Reports no additional eye complaints Reports system reviewed and no additional complaints, except as documented Cardiovascular: Reports as per HPI and Reports no additional cardiovascular complaints Respiratory: Reports as per HPI and Reports no additional respiratory complaints Gastrointestinal: Reports as per HPI and Reports no additional gastrointestinal complaints Genitourinary: Reports no additional female genitourinary complaints Musculoskeletal: Reports no additional musculoskeletal complaints Skin/Breast: Reports system reviewed and no additional complaints, except as docu Psychiatric: Reports no additional psychiatric complaints Endocrine: Reports no additional endocrine complaints Hematologic/Lymphatic: Reports no additional hematologic/lymphatic complaints Allergic/Immunologic: Reports no additional allergic/immunologic complaints Reports system reviewed and no additional complaints, except as documented and Reports Abnormal speech present [facility] Past Medical History Medical History Asthma Degenerative joint disease Dysphagia Feeding by G-tube Gastritis GERD (gastroesophageal reflux disease) History of palpitations Hx of cataract Paraganglioma Urinary incontinence Surgical History H/O section H/O neck surgery History of throat surgery Hx of cataract extraction Hx of colonoscopy Family History Family History Father No problems noted. Mother No problems noted. 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 Blood pressure normal. Heart rate normal. Respiration rate normal. Temperature normal. Oxygen saturation normal. Appearance: Alert. Oriented X3. No acute distress. Head: Normal external exam. Normocephalic. Atraumatic. No Martin signs noted. No raccoon eyes noted Eyes: PERRLA. EOMI. Conjunctiva and sclera normal. Eyelids normal. ENT: TM's Normal. Pharynx normal. Uvula midline. Moist mucous membranes. No trismus noted. No drooling noted. No muffled voice noted. Neck: Normal inspection. Neck supple. FROM. No adenopathy. Thyroid Normal. No meningeal signs. No neck mass noted. CVS: Normal heart rate and rhythm. Heart sound normal. No murmurs noted. Pulses normal throughout. Respiratory: No respiratory distress. Painless inspiration. Breath sounds normal. No wheezes/rales/rhonchi noted. Chest nontender. No accessory muscle usage noted or decreased air movement noted. Abdomen: Soft and nontender. Bowel sounds normal in all 4 quadrants. No distention noted. No organomegaly noted. No visible injury noted. Back: No CVA tenderness. Full range of motion noted. Skin: Skin warm and dry. Normal skin color. Normal skin turgor. No rashes/lesions/lacerations noted. Extremities: No lower extremity edema. Extremities exhibit normal range of motion. Extremities nontender. Neuro: Oriented X 3. Cranial nerve exam: II-XII are grossly intact No motor deficit. No sensory deficit. Reflexes normal. Procedures Feeding Tube Replacement Type of Tube: gastrostomy Insertion Site Prior to Procedure: clean Occitan Tube Size (F): 16 Balloon size (mL): 10 Verification of Placement: auscultation, KUB and gastrografin injection Patient Tolerated Procedure: well Medical Decision Making Differential Diagnosis Differential Diagnoses: The differential diagnosis associated with the presentation includes Gastrostomy tube placement Discharge Plan Discharge Clinical Impression: Dislodged gastrostomy tube, Gastrostomy tube in place Patient Disposition: Home, Self-Care Instructions: How to Use and Care for Your PEG Tube (ED) Prescriptions: No Action triamcinolone acetonide 0.025 % ointment 1 appl topical BID Qty: 80 0RF fluticasone propionate 110 mcg/actuation HFA aerosol inhaler 2 puff inhalation Q4-6H PRN (Reason: Shortness Of Breath Or Wheezing) calcium carbonate-vitamin D3 600 mg-10 mcg (400 unit) tablet 1 tab PO BID nortriptyline 50 mg capsule 50 mg PO BEDTIME Referrals: Carolina Robbins, SENIOR PAYROLL MANAGER [Primary Care Provider] -
--- NOTE | 2022-05-06 00:47 | PC.NURSE ---
pt at bedside. vss. skin pwd. pt provided with discharge packet. pt verbalized understanding of discharge plan
== END 2022-05-06 00:49 | disposition home or self-care (01) ==
PROVIDERS: Emergency Provider Emergency Medicine; PCP Nurse Practitioner Primary Care
DX: K94.29 Other complications of gastrostomy (principal); R13.10 Dysphagia, unspecified
CPT/HCPCS: 43762; 74018; 99283; 99284

== ENCOUNTER 2022-05-28 12:59 | Emergency (ER) | payer OTHER, SELFPAY ==
[2022-05-28 13:08] VITALS: BP 116/80; BP 136/86; PULSE 110; PULSE 82; RESP 16; TEMP 36.7; O2SAT 96; O2SAT 97; BMI 32.1
--- NOTE | 2022-05-28 14:02 | ED_ITS ---
HPI - General Adult General Chief complaint: Skin/Abscess/Foreign Body Stated complaint: G-tube leaking per EMS Time Seen by Provider: 05/28/22 13:59 Source: patient Mode of arrival: ambulatory Limitations: no limitations History of Present Illness HPI narrative: Patient is having persistent leakage from her G-tube which was placed 3 weeks ago. Normally she has an 18 Marshallese tube that was replaced with a 16 Marshallese. She has no pain, fever, chills, bloody discharge, redness of the skin. Symptoms are moderate. There is no clear relieving or exacerbating features. There is no radiation of symptoms. Related Data Home Medications Medication Instructions Recorded Confirmed fluticasone propionate 110 2 puff inhalation Q4-6H PRN 01/21/20 04/28/22 mcg/actuation HFA aerosol inhaler Shortness Of Breath Or Wheezing calcium carbonate 600 mg-vitamin 1 tab PO BID 04/28/22 04/28/22 D3 10 mcg (400 unit) tablet nortriptyline 50 mg capsule 50 mg PO BEDTIME 04/28/22 04/28/22 Previous Rx's Medication Instructions Recorded triamcinolone acetonide 0.025 % 1 appl topical BID #80 grams 04/09/21 topical ointment Allergies Allergy/AdvReac Type Severity Reaction Status Date / Time latex [LATEX] Allergy Unknown RASH Verified 05/05/22 21:10 PMFSH Past Medical History Medical History Asthma Degenerative joint disease Dysphagia Feeding by G-tube Gastritis GERD (gastroesophageal reflux disease) History of palpitations Hx of cataract Paraganglioma Urinary incontinence Surgical History H/O section H/O neck surgery History of throat surgery Hx of cataract extraction Hx of colonoscopy Family History Family History Father No problems noted. Mother No problems noted. 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) Alcohol intake: never Patient Tobacco Use Status: Never used Tobacco Advance Directives: Yes Advance Directives Information Provided: Yes Advance Directives on File: No Physical Exam ED Vital Signs: Vital Signs - 24 hr 05/28/22 13:08 Temperature 98.1 F Pulse Rate 82 Respiratory Rate 16 Blood Pressure 116/80 Pulse Oximetry 96 Oxygen Delivery Method Room Air BMI result Body Mass Index 32.1 GEN: Well developed, no acute distress, alert, oriented HEENT: Normocephalic, atraumatic, normal external ears, nose appears normal Eyes: Normal to appearance Neck: Supple, no lymphadenopathy Respiratory: Talks in complete sentences, no respiratory distress Extremities: No clubbing cyanosis or edema Neurologic: No focal neurologic deficits, cranial nerves 2-12 intact, gait normal Skin: No rash Course Course Course Narrative: 72-year-old female presents with request to replace the G-tube due to persistent leakage. It has been nonbloody nonpurulent drainage. She has no pain, fevers, chills. Will attempt to replace G-tube at this time with an appropriately- sized G-tube Reevaluation(s) Reevaluation #1: Was unable to obtain an 18 Marshallese G-tube. I did attempt to place a 20 Marshallese but was unsuccessful. We subsequently replaced the G-tube with a 16 Marshallese tube. Hopefully this will create less leakage. I recommended follow-up with her resident program specialist next week a could replace it with an 18 Marshallese. Time: 14:54 Procedures Feeding Tube Replacement Type of Tube: gastrostomy Insertion Site Prior to Procedure: clean Tube Used for Reinsertion: other (G-tube new) Marshallese Tube Size (F): 16 Balloon size (mL): 8 Verification of Placement: auscultation Tube Secured by: tape/dressing Patient Tolerated Procedure: well Medical Decision Making Medical Decision Making MDM Narrative: 72-year-old female presents with request to replace the G-tube due to persistent leakage. It has been nonbloody nonpurulent drainage. She has no pain, fevers, chills. Will attempt to replace G-tube at this time with an appropriately- sized G-tube Differential Diagnosis Differential Diagnoses: The differential diagnosis associated with the presentation includes (G-tube dysfunction, G-tube size related issue) External Record Review External record reviewed: Other (colonoscopy report) Prescription Management I considered prescription management with: Pain Medication Discharge Plan Discharge Clinical Impression: Gastrostomy tube dysfunction Patient Disposition: Home, Self-Care Instructions: How to Use and Care for Your PEG Tube (ED) Prescriptions: No Action triamcinolone acetonide 0.025 % ointment 1 appl topical BID Qty: 80 0RF fluticasone propionate 110 mcg/actuation HFA aerosol inhaler 2 puff inhalation Q4-6H PRN (Reason: Shortness Of Breath Or Wheezing) calcium carbonate-vitamin D3 600 mg-10 mcg (400 unit) tablet 1 tab PO BID nortriptyline 50 mg capsule 50 mg PO BEDTIME Referrals: Carolina Robbins VOIP NETWORK TECHNICIAN [Primary Care Provider] -
[2022-05-28 14:58] VITALS: BP 138/75; PULSE 75; RESP 15; TEMP 36.6; O2SAT 96
== END 2022-05-28 15:25 | disposition home or self-care (01) ==
PROVIDERS: Emergency Provider Emergency Medicine; PCP Nurse Practitioner Primary Care
DX: K94.23 Gastrostomy malfunction (principal)
CPT/HCPCS: 99283

== ENCOUNTER 2022-07-08 08:01 | Outpatient (REF) | payer OTHER, SELFPAY ==
[2022-07-08 09:09] VITALS: BMI 30.5
[2022-07-08 09:10] VITALS: BP 156/77; PULSE 86; RESP 16; TEMP 36.8; O2SAT 97
[2022-07-08 09:29] VITALS: BP 142/70; PULSE 86; RESP 16; O2SAT 97
--- NOTE | 2022-07-08 13:46 | OP_ITS ---
DATE OF SERVICE: 07/08/2022 SURGEON: Benny Sanabria MD INDICATIONS: Leaking G-tube. PREOPERATIVE DIAGNOSIS: POSTOPERATIVE DIAGNOSIS: PROCEDURE PERFORMED: G-tube replacement. ESTIMATED BLOOD LOSS: COMPLICATIONS: ANESTHESIA: None. ASSISTANTS: SPECIMENS: DESCRIPTION OF PROCEDURE: A history and physical was performed. The risks and benefits of the procedure were explained to the patient. Informed consent was obtained. The patient was placed supine on the exam table. The previous G-tube site was inspected and found to be intact with some mild erythema from G-tube leaking around the G-tube site. The 16-Nepali G-tube was removed. Povidine ointment was applied and an 18-Nepali G-tube was lubricated and passed into the trach with no immediate complications. The balloon was inflated with 10 mL of water and the G-tube was tested and found to be intact. The site was secured with a sliding external bolster and a dry sterile dressing was applied. She tolerated the procedure well. IMPRESSION: G-tube replacement. RECOMMENDATION: Follow up as needed. MD NAN Clifford/BECKY / [id number]
== END 2022-07-08 08:02 | disposition home or self-care (01) ==
LOC: HO.MS 08:01
PROVIDERS: PCP Nurse Practitioner Primary Care; Visit Provider Internal Medicine Gastroenterology
PROC: (CPT 43762; principal; 2022-07-08 09:00)
DX: Z43.1 Encounter for attention to gastrostomy (principal); Z45.89 Encounter for adjustment and management of other implanted devices
CPT/HCPCS: 43762

== ENCOUNTER 2023-04-29 13:58 | Outpatient (AMB) | payer OTHER, SELFPAY ==
[2023-04-29 13:59] VITALS: BP 140/80; PULSE 88; BMI 31.1
--- NOTE | 2023-04-29 13:59 | A.OFFVIS_ITS ---
Intake Vital Signs 04/29/23 13:59 04/29/23 14:19 Height 5 ft 2 in Weight 170 lb 3.15 oz BMI 31.1 BP 140/80 H 128/70 Blood Pressure Location Lt brachial Lt brachial Position Sitting Sitting Pulse 88 Intake Visit Reasons: 1 yr f/up Intake Note: pt its here for a 1 yr f/up pt states thats she its doing fine but have been shortness of breath recently more often then usual. Home Day Care Provider Required: No Accompanied by: Self / Same As Patient Allergies latex [LATEX] Allergy (Unknown, Verified 04/29/23 14:21) RASH Medication List - Last Reconciled 04/29/23 by Lyndsey Dolan NP calcium carbonate-vitamin D3 600 mg-10 mcg (400 unit) 1 tab PO BID fluticasone propionate 110 mcg/actuation 2 puffs inhalation Q4-6H PRN fluticasone propionate 50 mcg/actuation sprays intranasal nortriptyline 50 mg PO BEDTIME HPI HPI Comments History of Present Illness Details 72-year-old female presents today for a follow-up. She has a history of AMBRIZ, palpitations, and dysphasia with chronic g-tube. She reports that she has been doing well with no major changes in her health. She stil gets a rare fast heart rate, and shortness of breath is about the same as it has been since her last visit. She reports she has been getting more fatigued lately. She reports a chest tightness she gets at rest and with exertional activities such as stairs. She denies any swelling or orthopnea. [facility] Medical History Shortness of breath Chest pain History of palpitations Hx of cataract Urinary incontinence Dysphagia Degenerative joint disease Asthma GERD (gastroesophageal reflux disease) Gastritis Paraganglioma Feeding by G-tube Surgical History Hx of cataract extraction Hx of colonoscopy H/O neck surgery H/O section History of throat surgery Family History Father No problems noted. Mother No problems noted. 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) Alcohol intake: never Patient Tobacco Use Status: Never used Tobacco Review of Systems Const Denies chills, Denies fatigue, Denies fever(s), Denies frequent falls, Denies weakness, Denies weight gain and Denies weight loss ENT Denies dizziness Card Denies chest pain, Denies leg edema, Denies lightheadedness, Denies palpitations, Denies dyspnea and Denies dyspnea on exertion Resp Denies cough, Denies dyspnea and Denies dyspnea on exertion GI Denies hematochezia Musc Denies abnormal gait, Denies muscle weakness, Denies numbness, Denies radiating pain into limb and Denies tingling Neuro Denies abnormal gait, Denies dizziness, Denies frequent falls, Denies numbness, Denies tingling and Denies weakness Endo Denies fatigue and Denies palpitations Physical Exam Vital Signs: Last Vital Signs Pulse 88 04/29/23 13:59 BP 140/80 H 04/29/23 13:59 BMI result Body Mass Index 31.1 Const General: healthy appearing and no acute distress Orientation/consciousness: patient oriented x3 HEENT Head: Yes normal to inspection Eyes General: appearance normal, both eyes and all related structures Neck Neck: Yes normal visual inspection Chest Chest palpation & inspection: normal inspection of the chest Resp Effort & Inspection: normal respiratory effort Auscultation: clear to auscultation bilaterally Cardio Jugular venous distension: no JVD Palpation: normal PMI Rate: regular rate Rhythm: regular rhythm Heart sounds: S1 normal heart sound present, S2 normal heart sound present, no click, no gallops, no murmurs and no rubs GI Inspection: Yes normal to inspection Palpation (GI): Soft to palpation Skin General skin exam: no rashes or lesions noted Neuro General: patient oriented x3 Extrem General: Yes normal to inspection Psych Appearance: grossly normal Office Procedures EKG Details: EKG today. Normal sinus rhythm. Rate 88 bpm. QRS 102ms. QTc 459ms. CT 162ms. No changes from prior. [id number], Complete Assessment & Plan Assessment & Plan (1) Aortic regurgitation: Code(s): I35.1 - Nonrheumatic aortic (valve) insufficiency Plan: Echo last done 02/12/2020 showed mild aortic regurgitation. Will repeat due to shortness of breath increasing and to reassess valve. (2) Chest pain: Code(s): R07.9 - Chest pain, unspecified Plan: Report of chest discomfort at rest and with exertion. Will get pharmacological stress test to assess for ischemia. EKG today shows normal sinus rhythm without ST abnormalities. (3) Shortness of breath: Code(s): R06.02 - Shortness of breath Plan: States overall breathing is about the same as prior. Still easily short of breath with exertion. Will get pharmacological stress test to assess chest pains at rest and exertion and shortness of breath. Patient reports she is not claustrophobic. She drinks occational by mouth which she was told she is able to by her GI team but still occationally gets a cough after drinking orally. Orders: Orders NM cardiolite stress test Today R07.9 - Chest pain, unspecified CA echo transthoracic complete Today I35.1 - Nonrheumatic aortic (valve) insufficiency, R07.9 - Chest pain, unspecified CA lexiscan stress w jewel Today R07.9 - Chest pain, unspecified Coding Level of Care Code Est Pt Level 3 (82677) Diagnoses Aortic regurgitation I35.1 Chest pain R07.9 Shortness of breath R06.02 CPT Codes EKG - CPT: 87443-[id number], Complete ([id number])
[2023-04-29 14:19] VITALS: BP 128/70
== END 2023-04-29 14:29 | disposition home or self-care (01) ==
PROVIDERS: PCP Nurse Practitioner Primary Care; Visit Provider Nurse Practitioner
DX: I35.1 Nonrheumatic aortic (valve) insufficiency (principal); R07.9 Chest pain, unspecified; R06.02 Shortness of breath
CPT/HCPCS: 93010; 99213

== ENCOUNTER → 2023-04-29 13:58 | Outpatient (BNVA) | payer OTHER, SELFPAY | PROVIDERS: PCP Nurse Practitioner Primary Care; Visit Provider Nurse Practitioner | DX: I35.1 Nonrheumatic aortic (valve) insufficiency (principal); R07.9 Chest pain, unspecified; R06.02 Shortness of breath | CPT/HCPCS: 93005; 99212 ==

== ENCOUNTER 2023-06-16 14:55 | Outpatient (REF) | payer OTHER, SELFPAY | END 2023-06-16 14:56 | disposition home or self-care (01) | LOC: HO.MAMMO 14:55 | PROVIDERS: PCP Nurse Practitioner Primary Care; Visit Provider Nurse Practitioner Primary Care | DX: Z12.31 Encounter for screening mammogram for malignant neoplasm of breast (principal) | CPT/HCPCS: 77063; 77067 ==

== ENCOUNTER → 2023-06-16 15:15 | Outpatient (BNV) | payer OTHER, SELFPAY | PROVIDERS: PCP Nurse Practitioner Primary Care; Visit Provider Radiology Diagnostic Radiology | DX: Z12.31 Encounter for screening mammogram for malignant neoplasm of breast (principal) | CPT/HCPCS: 77063; 77067 ==

== ENCOUNTER → 2023-07-13 08:17 | Outpatient (REF) | payer OTHER, SELFPAY ==
--- NOTE | ~2023-07-13 | NM_ITS ---
Lexiscan Myocardial perfusion study Indication: Shortness of breath, chest pain, palpitations, assess for coronary disease and ischemia Technique: The patient was brought in for a Lexiscan perfusion study on 07/13/2023 and was injected 0.4 mg of Lexiscan intravenously. Within a minute of this injection 25 mCi of sestamibi was given intravenously. Images were obtained using the SPECT gamma camera interlaced with the gating device. Images were obtained in supine position. Resting perfusion study was performed on 07/14/2023. Patient was administered 25 mCi of sestamibi intravenously at rest. Images were then obtained in supine position. Images were processed with the software and compared side to side in short axis, horizontal long axis and vertical long axis views. Total DLP 85mGy-cm. Findings: Raw acquisition reviewed. The stress perfusion study showed no significant perfusion abnormality. Both uncorrected as well as CT attenuation corrected images were reviewed. The gated study shows normal LV systolic function with calculated LVEF of 66%. LV cavity is normal in size. The gated study shows normal wall thickening and contraction of segments. Resting study shows no significant perfusion abnormality. Gating at rest reveals normal wall motion with ejection fraction at 64%. The findings are consistent with no clear reversible or fixed perfusion abnormality. NM/NM cardiolite stress test Impression: 1. Myocardial perfusion imaging study shows probably normal myocardial perfusion. 2. Gated LVEF is 66% during stress and 64% during rest. 3. Transient ischemic dilatation not present. EKG component of the test reported separately.
--- NOTE | 2023-07-13 08:21 | CA_ITS ---
Acquisition Time: 2023-07-13 08:57:48 Total Exercise Time: 00:02:00 Test Indications: Dyspnea Medications: FLOVENT FLONASE NORTRIPTYLINE Protocol: LEXISCAN Max HR: 108 BPM 73% of Pred: 146 BPM Max BP: 126/072 mmHG Max Work Load: 1.0 METS Pharmacoligcal stress test with Lexiscan inejction while sititng and kicking her legs, without anginal symptoms, with isolated PACs, with normotensive response to injection, with nondiagnoisitic EKGs. Aminophylline 75mg IVP given to reverse Lexiscan. Nuclear images pending. Test reviewed with Dr. Ferrari Referred By: Lyndsey Dolan Overread By: Lyndsey Dolan
--- NOTE | 2023-07-13 08:21 | CA_ITS ---
Transthoracic Echocardiogram Patient (Last, First, Middle): Donna Hua E Gender: Female Date of : 1950 Age: 73 Procedure Date: 07/13/2023 Procedure Type: Transthoracic Echocardiogram Location: OP Height: 157.48 cm Weight: 75.3 kg BSA: 1.77 m2 Heart Rate: bpm BP: 136 / 70 mmHg Tray Delivery Aide: MANISH Referring MD: Lyndsey Dolan NP Symptoms: I35.1 - Nonrheumatic aortic (valve) insufficiency Study Quality: Technically Difficult Conclusions: - 1. Low normal LV ejection fraction of 50-55% with grade 1 diastolic dysfunction 2. Mild aortic regurgitation 3. Normal RV systolic pressure 4. No gross pericardial effusion Findings Left Ventricle Normal left ventricular cavity size. There is normal left ventricular wall thickness. The left ventricular systolic function is low normal. The visually estimated ejection fraction is between 50-55%. Spectral Doppler is indicative of an impaired relaxation filling pattern. E/E prime ratio is <8, consistent with normal filling pressures. Evidence suggests grade I (mild) diastolic dysfunction. Peak GLS is -15.0%, mildly reduced. Right Ventricle Normal right ventricular cavity size and systolic function. Atria Both atria are normal in size. Interatrial shunt cannot be excluded. Aortic Valve The aortic valve was not well visualized. There is mild calcification of the aortic valve. There is no aortic valve stenosis. There is mild aortic valve regurgitation. Mitral Valve The mitral valve was not well visualized. There is trace mitral valve regurgitation. There is no mitral valve stenosis. Pulmonic Valve The pulmonic valve was not well visualized. Tricuspid Valve Likely normal tricuspid valve structure and function. There is trace tricuspid valve regurgitation. The right ventricular systolic pressure is normal. The right ventricular systolic pressure is 18 mmHg. Normal right atrial pressure. There is no evidence of pulmonary hypertension. Great Vessels The aorta was not well visualized. The pulmonary artery was not well visualized. Venous The inferior vena cava is normal in size and collapses greater than 50% with inspiration. Pericardium/Pleural There is no evidence of pericardial effusion. Prior Study Comparison No significant change compared to prior study dated: 02/12/2020. Measurements 2D Linear Measurements IVSd: 1.14 0.6-0.9/0.6-1.0 cm LVIDd: 4.42 3.9-5.3/4.2-5.9 cm LVIDd Index: 2.50 2.4-3.2/2.2-3.1 cm/m2 LVIDs: 3.26 2.0-3.6 cm LVPWd: 0.95 0.7-1.1 cm LA Diam: 2.20 2.7-3.8/3.0-4.0 cm LAIDs Index: 1.24 1.5-2.3 cm/m2 LV Mass: 197.26 67-162/88-224 g LV Mass Index: 111.44 43-95/49-115 g/m2 LVOT Diam: 2.10 3.0+(-)1.3 cm 2D Systolic Function EF 4C: 56.30 >55% EF 2C: 55.20 >55% EF BiP: 55.70 >55% Mitral Valve MV Pk E: 0.43 MV PK A: 0.75 MV Decel Time: 148.00 E/A: 0.60 E'Lateral: 8.38 E'Medial: 5.44 E/E' Med: 8.00 E/E' Lat: 5.20 PHT: 43.00 MVA PHT: 5.12 Decel Duval: 2.92 Aortic Valve AoV Pk Ke: 1.34 AoV Mn Ke: 0.92 AoV VTI: 0.27 AoV Pk Grad: 7.00 Aov Mn Grad: 4.00 BEATA Cont.VTI: 2.46 LVOT LVOT Pk Ke: 0.91 LVOT Mn Ke: 0.59 LVOT VTI: 0.19 LVOT Pk Grad: 3.00 LVOT Mn Grad: 2.00 LVOT Diam: 2.10 LVOT Area: 3.46 Diastolic Function MV Pk E: 0.43 MV Pk A: 0.75 E/A: 0.60 E'Medial: 5.44 E/E' Med: 8.00 E' Laterial: 8.38 E/E' Lat: 5.20 Right Ventricle TAPSE (mm): 19.20 TVS' Ke: 11.20 Tricuspid Valve TR Pk Ke: 1.92 TR Pk Grad: 15.00 RA Press: 3.00 RVSP: 18.00 Great Vessels Aorta Sinus of Valsalva: 3.42 2.0-3.[address] Ridge: 2.23 1.7-3.4 cm Updated in Other Vendor System with Status of Final Flash Ferrari MD electronically signed on 07/13/2023 3:40:54 PM with status of Final
== END ==
LOC: HO.CARD 08:17
PROVIDERS: PCP Nurse Practitioner Primary Care; Visit Provider Nurse Practitioner
DX: R07.9 Chest pain, unspecified (principal); I35.1 Nonrheumatic aortic (valve) insufficiency
CPT/HCPCS: 78452; 93017; 93306; 93356; A9500; J0280; J2785

== ENCOUNTER → 2023-07-13 08:21 | Outpatient (BNV) | payer OTHER, SELFPAY | PROVIDERS: PCP Nurse Practitioner Primary Care; Visit Provider Internal Medicine Cardiovascular Disease | DX: R06.02 Shortness of breath (principal); R07.9 Chest pain, unspecified | CPT/HCPCS: 78452; 93016; 93018; 93320; 93350; 93356 ==

== ENCOUNTER 2023-07-19 14:01 | Outpatient (AMB) | payer OTHER, SELFPAY ==
[2023-07-19 14:31] VITALS: BP 140/78; PULSE 89; O2SAT 99; BMI 30.5
--- NOTE | 2023-07-19 14:31 | MHC.OFFVIS ---
Vital Signs 07/19/23 14:31 07/19/23 14:44 Height 5 ft 2 in Weight 167 lb BMI 30.5 BP 140/78 H 130/62 Blood Pressure Location Lt brachial Lt brachial Position Sitting Sitting Pulse 89 Pulse Source Pulse Oximeter Pulse Oximetry (%) 99 Oxygen Delivery Method Room Air Intake Visit Reasons: f/up testing Intake Note: follow up testing pt feels good Allergies latex [LATEX] Allergy (Unknown, Verified 04/29/23 14:21) RASH HPI Comments Details: 73-year-old female presents today for a follow-up. She has a history of AMBRIZ, palpitations, and dysphasia with chronic g-tube. She reports that she has been doing well with no major changes in her health. She still gets a rare fast heart rate, and shortness of breath is about the same as it has been since her last visit. She denies any chest pains, swelling or orthopnea. [facility] Medical History Shortness of breath Chest pain History of palpitations Hx of cataract Urinary incontinence Dysphagia Degenerative joint disease Asthma GERD (gastroesophageal reflux disease) Gastritis Paraganglioma Feeding by G-tube Surgical History Hx of cataract extraction Hx of colonoscopy H/O neck surgery H/O section History of throat surgery Family History Father No problems noted. Mother No problems noted. Social History Are you a primary career development consultant to a significant other at home: No Do you presently have visiting nurse or other home services: Yes ([employer] SALES AG[employer] 2 x week) Alcohol intake: never Patient Tobacco Use Status: Never used Tobacco Review of Systems Const Denies weakness ENT Denies dizziness Card Denies chest pain, Denies chest pain with activity, Denies syncope, Denies rapid heart rate, Denies pedal edema, Denies edema, Denies leg edema, Denies lightheadedness, Denies palpitations, Denies dyspnea, Denies dyspnea on exertion and Denies orthopnea Resp Denies cough, Denies dyspnea and Denies dyspnea on exertion GI Denies hematochezia and Denies change in stool character Musc Denies abnormal gait, Denies muscle cramps, Denies muscle weakness, Denies numbness, Denies radiating pain into limb and Denies tingling Neuro Denies abnormal gait, Denies dizziness, Denies syncope, Denies numbness, Denies tingling and Denies weakness Endo Denies palpitations Physical Exam Vital Signs: Last Vital Signs Pulse 89 07/19/23 14:31 BP 130/62 07/19/23 14:44 Pulse Ox 99 07/19/23 14:31 Oxygen Delivery Method Room Air 07/19/23 14:31 BMI result Body Mass Index 30.5 Results Reviewed Results Reviewed: Echo Conclusions: - 1. Low normal LV ejection fraction of 50-55% with grade 1 diastolic dysfunction 2. Mild aortic regurgitation 3. Normal RV systolic pressure 4. No gross pericardial effusion NM/NM cardiolite stress test Impression: 1. Myocardial perfusion imaging study shows probably normal myocardial perfusion. 2. Gated LVEF is 66% during stress and 64% during rest. 3. Transient ischemic dilatation not present. Assessment & Plan Assessment & Plan (1) Chest pain: Code(s): R07.9 - Chest pain, unspecified Category: Medical (2) Aortic regurgitation: Code(s): I35.1 - Nonrheumatic aortic (valve) insufficiency Category: Medical Plan Echo images with no significant changes. Low normal EF. Grade 1 diastolic dysfunction. Mild aortic regurgitation. Chest pains have resolved. Reassurance given. Coding Level of Care Code Est Pt Level 3 (36363) Diagnoses Chest pain R07.9 Aortic regurgitation I35.1
[2023-07-19 14:44] VITALS: BP 130/62
== END 2023-07-19 14:49 | disposition home or self-care (01) ==
PROVIDERS: PCP Nurse Practitioner Primary Care; Visit Provider Nurse Practitioner
DX: R07.9 Chest pain, unspecified (principal); I35.1 Nonrheumatic aortic (valve) insufficiency
CPT/HCPCS: 99213

== ENCOUNTER → 2023-07-19 14:01 | Outpatient (BNVA) | payer OTHER, SELFPAY | PROVIDERS: PCP Nurse Practitioner Primary Care; Visit Provider Nurse Practitioner | DX: R07.9 Chest pain, unspecified (principal); I35.1 Nonrheumatic aortic (valve) insufficiency | CPT/HCPCS: 99212 ==

== ENCOUNTER 2023-08-03 12:52 | Day surgery (SDC) | payer OTHER, SELFPAY ==
[2023-08-03 13:32] VITALS: BMI 30.7
--- NOTE | 2023-08-03 14:47 | MHC.SHP ---
Pre-Procedural Eval Section A - 24 Hr Update-Section A only Date of Service: 08/03/23 Section B - Complete if H&P > 30 days Chief Complaint: Gastrostomy malfunction Details of Present Illness: see H&P no changes Relevant Family History (Specify if Yes): No Relevant Social History: None Present Medications: see Short Stay Collaborative assessment Medical History: No relevant PMH History of Previous Operations: No relevant previous surgery Allergies: Allergies Allergy/AdvReac Type Severity Reaction Status Date / Time latex [LATEX] Allergy Unknown RASH Verified 04/29/23 14:21 Review of Systems Sugical H&P ROS: Negative: Constitution, Cardiovascular, Respiratory, Neurological, Psychiatric, Hem-Onc, Allergic/Immunologic, Gastrointestinal, Genitourinary, Musculoskeletal, Integumentary, Endocrine and Eyes/Ears/Nose/Throat Exam Surgical H&P Exam: Normal: HEENT, Normal: Heart, Normal: Lungs, Normal: Extremities, Normal: Abdomen, Normal: Skin and Normal: Neurological Plan Diagnosis/Plan: Unchanged I have reviewed the history and physical and performed a pertinent physical examination on my patient. No changes have occurred unless specified. Time Spent With Patient Time: Total time managing care of this patient today ____ minutes.
[2023-08-03 15:03] VITALS: BP 133/76; PULSE 86; RESP 16; TEMP 36.8; O2SAT 93
--- NOTE | 2023-08-03 23:16 | OP_ITS ---
DATE OF SERVICE: 08/03/2023 SURGEON: Benny Sanabria MD INDICATIONS: Malfunctioning G-tube. PREOPERATIVE DIAGNOSIS: POSTOPERATIVE DIAGNOSIS: PROCEDURE PERFORMED: G-tube replacement. ESTIMATED BLOOD LOSS: COMPLICATIONS: ANESTHESIA: Monitored anesthesia care. ASSISTANTS: SPECIMENS: DESCRIPTION OF PROCEDURE: A history and physical was performed. The risks and benefits of the procedure were explained to the patient. Informed consent was obtained. The patient was placed in the supine position. The old G-tube site was inspected. There was some minor surrounding erythema but no granulation tissue. The G tube was deflated and removed. New 18-Faroese replacement tube was threaded through the tract after being lubricated, and the balloon was inflated with 10 cc of water. Once intragastric placement was confirmed, a dry sterile dressing was applied. The patient tolerated the procedure well and was discharged home. She has been instructed to use topical antibiotic ointment at the G-tube site for the slight surrounding erythema. She will let us know if there is any worsening. MD NAN Clifford/TARAL / [id number] MTDD
== END 2023-08-03 15:24 | disposition home or self-care (01) ==
PROVIDERS: PCP Nurse Practitioner Primary Care; Visit Provider Internal Medicine Gastroenterology
PROC: (CPT 43762; principal; 2023-08-03 14:40)
DX: K94.23 Gastrostomy malfunction (principal); K21.9 Gastro-esophageal reflux disease without esophagitis; R13.10 Dysphagia, unspecified; Z86.03 Personal history of neoplasm of uncertain behavior; J38.00 Paralysis of vocal cords and larynx, unspecified; Z79.899 Other long term (current) drug therapy; Z91.040 Latex allergy status; Z98.890 Other specified postprocedural states
CPT/HCPCS: 43762

== ENCOUNTER 2024-06-06 12:07 | Outpatient (REF) | payer OTHER, SELFPAY ==
[2024-06-06 13:16] VITALS: BP 148/77; PULSE 77; RESP 18; O2SAT 98; BMI 31.1
--- NOTE | 2024-06-06 13:34 | OP_ITS ---
DATE OF SERVICE: 06/06/2024 SURGEON: Benny Sanabria MD INDICATIONS: Malfunctioning G-tube. PREOPERATIVE DIAGNOSIS: POSTOPERATIVE DIAGNOSIS: PROCEDURE PERFORMED: G-tube replacement. ESTIMATED BLOOD LOSS: COMPLICATIONS: ANESTHESIA: ASSISTANTS: SPECIMENS: MEDICATIONS: None. DESCRIPTION OF PROCEDURE: History and physical performed. The risks and benefits of the procedure explained to the patient. Informed consent was obtained. The patient was placed in the supine position. The G-tube site was identified. The old G-tube was removed after the balloon was deflated and a new 18-Rwandan replacement G-tube was placed through the tract after being lubricated and easily passed into the stomach. The balloon was inflated and the tube was flushed and auscultated to be in good position. A dry sterile dressing was applied. FINAL IMPRESSION: G-tube replacement. RECOMMENDATION: Follow up as needed. MD NAN Clifford/MODL / [id number]
== END 2024-06-06 12:08 | disposition home or self-care (01) ==
LOC: HO.MS 12:07
PROVIDERS: Visit Provider Internal Medicine Gastroenterology
PROC: (CPT 43762; principal; 2024-06-06 13:00)
DX: K94.23 Gastrostomy malfunction (principal)
CPT/HCPCS: 43762

== ENCOUNTER 2024-11-20 15:20 | Outpatient (REF) | payer OTHER, SELFPAY ==
--- OUTSIDE RECORDS SUMMARY | 2024-11-20 14:00 | XMS_ITS | Encounter Summary ---
Author Organization [employer] Address [address] [place] [address] Care Team Providers Care Housekeeping And Laundry Team Leader Name Role Phone Carolina Robbins Primary Care Provider [phone] Encounter Details Date Type Department Care Team (Late st Contact Info) Description 11/20/2024 2:00 PM EDT Office Visit [facility] [address] [place] [address] Carolina Robbins ANP [address] [place] [address] Memory loss (Primary Dx); Gastrostomy tube in place (CMS/HCC); Chronic obstructive asthma (CMS/HCC); Insomnia, unspecified type; Latex allergy; Healthcare maintenance; Easy bruising; Left leg swelling; Pressure urticaria Social History Tobacco Use Types Packs/Day Years Used Date Smoking Tobacco: Never Passive Smoke Exposure: Never Smokeless Tobacco: Never Alcohol Use Standard Drinks/Week Comments Never 0 (1 standard drink = 0.6 oz pur e alcohol) Depression Answer Date Recorded Patient Health Questionnaire-9 Score 7 02/06/2024 Patient Health Questionnaire-9 Score 7 02/06/2024 Last PHQ-9: Questionnaire Data Not on file 1 04/07/2023 Housing Stability Answer Date Recorded What is your housing situation today? I have tony sanford 02/06/[address] you li ve. Do you have problems with any of the following? None of the above 02/06/2024 Food Insecurity Answer Date Recorded Within the past 12 months, y ou worried that your food would run out before you got money to buy more: Never True 05/04/2024 Within the past 12 months,th e food you bought just didn't last and you didn't have enough money to get more: Never True Transportation Answer Date Recorded In the past 12 months, has l ack of transportation kept you from medical appts, meetings, work or from getting things needed for daily living? No 02/06/2024 Utilities Answer Date Recorded In the past 12 months, has t he electric, gas, oil or water company threatened to shut off services in your home? No 02/06/2024 Depression Answer Date Recorded Patient Health Questionnaire-2 Score 1 02/06/2024 Internet Access Answer Date Recorded Internet Access Q1 Yes 02/06/2024 Internet Access Q2 Not on file 02/06/2024 Comments Unknown Sex and Gender Information Value Date Recorded Sex Assigned at Female 01/18/2022 10:19 AM EDT Legal Sex Female 10:19 AM EDT Gender Identity Female 01/18/2022 10:19 AM EDT Sexual Orientation Straight 01/18/2022 10 :19 AM EDT documented as of this encounter Last Filed Vital Signs Vital Sign Reading Time Taken Comments Blood Pressure 140/70 11/20/2024 2:12 PM EDT Pulse 100 11/20/2024 2:12 PM EDT Temperature 36.2 C (97.2 F) 11/20/2024 2:12 PM EDT Respiratory Rate 20 11/20/2024 2:12 PM EDT Oxygen Saturation 94% 11/20/2024 2:12 PM EDT Inhaled Oxygen Concentration - - Weight 78.3 kg (172 lb 9.6 oz) 11/20/2024 2:12 P M EDT Height 157.5 cm (5' 2 ) 11/20/2024 2:12 PM EDT Body Mass Index 31.57 11/20/2024 2:12 PM EDT documented in this encounter Plan of Treatment Scheduled Orders Name Type Priority Associated Diagnoses Orde r Schedule Lipid Panel, Standard Lab Routine Healthcare maintenance Expected: 11/20/2024 (Approximate), Expires: 11/20/2025 Iron And Total Iron Binding Capacity Lab Routine Easy bruising Expected: 11/20/2024, Expires: 11/20/2025 documented as of this encounter Visit Diagnoses Diagnosis Memory loss- Primary Gastrostomy tube in place ([facility]/HCC) Chronic obstructive asthma ([facility]) Chronic obstructive asthma, unspecified Insomnia, unspecified type Latex allergy Allergy to latex Healthcare maintenance Easy bruising Other symptoms involving skin and integumentary tissues Left leg swelling Pressure urticaria documented in this encounter Additional Health Concerns Assessment Noted Time PHQ-9 Depression Total Score: 7 02/06/20 24 1:32 PM EST documented as of this encounter Care Teams Housekeeping And Laundry Team Leader Relationship Specialty Start Date End Date Carolina Robbins ANP [address] [place] [address] PCP - General Family Medicine 11/19/19 documented as of this encounter
--- OUTSIDE RECORDS SUMMARY | 2024-11-20 16:26 | XMS_ITS | Encounter Summary ---
Author Organization [employer] Address [address] [place] [address] Care Team Providers Care Environmental Health And Safety Intern Name Role Phone Carolina Robbins Primary Care Provider [phone] Reason for Visit * Reason Onset Date Comments Nurse Triage 11/09/2022 Encounter Details Date Type Department Care Team (Late st Contact Info) Description 11/09/2022 Telephone [facility] [address] [place] [address] Carolina Robbins ANP [address] [place] [address] Nurse Triage Social History Tobacco Use Types Packs/Day Years Used Date Smoking Tobacco: Never Passive Smoke Exposure: Never Smokeless Tobacco: Never Alcohol Use Standard Drinks/Week Comments Never 0 (1 standard drink = 0.6 oz pur e alcohol) Comments Unknown Sex and Gender Information Value Date Recorded Sex Assigned at Female 01/18/2022 10:19 AM EDT Legal Sex Female 10:19 AM EDT Gender Identity Female 01/18/2022 10:19 AM EDT Sexual Orientation Straight 01/18/2022 10 :19 AM EDT documented as of this encounter Miscellaneous Notes * Telephone Encounter - Aida Andre RN - 11/09/2022 5:23 PM EDT Triage call with [facility] Palliative Care Coordinator ID [id number] Pt answered the phone, Pt is in the shower. Requested call back. Advised will call back in the morning and agreed. * Telephone Encounter - Kayla Jacobo - 11/09/2022 4:54 PM EDT Patient calling to report rash (feeding tube). Patient speaks Danish. Advised triage nurse will call patient back. Patient speaks afghan documented in this encounter Plan of Treatment Not on file documented as of this encounter Visit Diagnoses Not on filedocumented in this encounter Care Teams Environmental Health And Safety Intern Relationship Specialty Start Date End Date Carolina Robbins ANP [address] [place] [id number] PCP - General Family Medicine 11/19/19 documented as of this encounter
--- OUTSIDE RECORDS SUMMARY | 2024-11-20 16:26 | XMS_ITS | Encounter Summary ---
Author Organization [employer] Address [address] [place] [address] Care Team Providers Care Health Sciences Department Chair Name Role Phone Carolina Robbins Primary Care Provider [phone] Encounter Details Date Type Department Care Team (Late st Contact Info) Description 02/04/2023 Abstract [facility] [address] [place] [address] Cyndie Rojas Social History Tobacco Use Types Packs/Day Years Used Date Smoking Tobacco: Never Passive Smoke Exposure: Never Smokeless Tobacco: Never Alcohol Use Standard Drinks/Week Comments Never 0 (1 standard drink = 0.6 oz pur e alcohol) Depression Answer Date Recorded Patient Health Questionnaire-9 Score 0 01/05/2023 Patient Health Questionnaire-9 Score 0 01/05/2023 Last PHQ-9: Questionnaire Data Not on file 1 Housing Stability Answer Date Recorded What is your housing situation today? I have tony sanford 01/05/[address] you li ve. Do you have problems with any of the following? None of the above 01/05/2023 Food Insecurity Answer Date Recorded Within the past 12 months, y ou worried that your food would run out before you got money to buy more: Never True 01/05/2023 Within the past 12 months,th e food you bought just didn't last and you didn't have enough money to get more: Never True Transportation Answer Date Recorded In the past 12 months, has l ack of transportation kept you from medical appts, meetings, work or from getting things needed for daily living? No 01/05/2023 Utilities Answer Date Recorded In the past 12 months, has t he electric, gas, oil or water company threatened to shut off services in your home? No 01/05/2023 Depression Answer Date Recorded Patient Health Questionnaire-2 Score 0 01/05/2023 Comments Unknown Sex and Gender Information Value Date Recorded Sex Assigned at Female 01/18/2022 10:19 AM EDT Legal Sex Female 10:19 AM EDT Gender Identity Female 01/18/2022 10:19 AM EDT Sexual Orientation Straight 01/18/2022 10 :19 AM EDT documented as of this encounter Plan of Treatment Not on file documented as of this encounter Visit Diagnoses Not on filedocumented in this encounter Additional Health Concerns Assessment Noted Time PHQ-9 Depression Total Score: 0 01/06/20 23 3:01 PM EDT documented as of this encounter Care Teams Health Sciences Department Chair Relationship Specialty Start Date End Date Carolina Robbins ANP [address] [place] [id number] PCP - General Family Medicine 11/19/19 documented as of this encounter
--- OUTSIDE RECORDS SUMMARY | 2024-11-20 16:27 | XMS_ITS | Encounter Summary ---
Author Organization [employer] Address [address] [facility] [place] [address] Care Team Providers Care [employer]othing Trades Workers Name Role Phone Carolina Robbins Primary Care Provider [phone] Reason for Visit * Reason Onset Date Comments Med Refill 08/27/2022 Encounter Details Date Type Department Care Team (Late st Contact Info) Description 08/27/2022 Telephone [facility] [address] [place] [address] Carolina Robbins ANP [address] [place] [address] Med Refill Social History Tobacco Use Types Packs/Day Years [...] encounter Miscellaneous Notes * Telephone Encounter - Jordan Ware - 08/27/2022 12:13 PM EDT Tc from pt requesting med refill on Mometasone 0.1% Topical cream Medication is currently inactive. Please sent to [facility] [address] [place] [address] [id number] documented in this encounter Plan of Treatment Not on file documented as of this encounter Visit Diagnoses Not on filedocumented in this encounter Care Teams Clothing Trades Workers Relationship Specialty Start Date End Date Carolina Robbins ANP [address] [place] [address] PCP - General Family Medicine 11/19/19 documented as of this encounter
--- OUTSIDE RECORDS SUMMARY | 2024-11-20 16:27 | XMS_ITS | Clinical Summary ---
Author Organization [employer] Address [address] [facility] [address] [place] [address] Care Team Providers Care Telephone Answerer Name Role Phone Carolina Robbins Primary Care Provider [phone] Allergies Active Allergy Reactions Criticality Noted Date Comments Latex Shortness of breath,Unknown High 07/01/2015 Other reaction(s): rash Medications Allergy Relief Childrens 12.5 MG/5ML liquid Take 10 mL by mouth at bedtime. 05/04/19 22 Active lansoprazole (Prevacid) [address] capsule Take 1 capsule by oral route every day before a meal 04/01/19 23 Active acetaminophen (Tylenol) 500 MG tablet Take 1,000 mg by mouth. 06/23/19 18 Active citalopram (CeleXA) 10 MG tablet Take by mouth. 03/28/19 18 Active clonazePAM (KlonoPIN) 0.5 MG tablet Take 0.5 mg by mouth. 05/12/19 18 Active lamoTRIgine (LaMICtal) 25 MG chewable tablet See Instructions, 1 tablet By G Tube hs for 7 days, increase by 1 tab per dahy every 7 days to 2 tabs bid, # 70 tablet, 0 Refills, Maintenance, 06/22/17 13:44:06 EDT 06/23/19 18 Active LANSOPRAZOLE PO Take 30 mg by mouth. 09/28/19 18 Active Nutritional Supplements (Jevity 1.5 Josef/Fiber) liquid Take by mouth. Activ e omeprazole (PriLOSEC) [address] capsule 1 by mouth once daily 12/08/19 10 Active venlafaxine (Effexor) 37.5 MG tablet Take 37.5 mg by mouth 2 times daily. Active Adhesive Tape (Micropore Surgical 1 x10yd) tapeIndications :Gastrostomy tube in place (CMS/HCC) Use daily as needed for PEG tube maintenance 1 each 3 04/07/19 24 Active mometasone (Elocon) 0.1 % creamIndication s:Rash APPLY TOPICALLY EVERY DAY IF NEEDED FOR RASH OR ITCHING 45 g 1 11/16/19 24 Active Blood Pressure kitIndications: Elevated blood pressure reading in office without diagnosis of hypertension 1 Units Once per day. Please check BP every day. Call the clinic for appointment if reading persist over 130/80 mmHg 1 kit 11/16/19 24 Active fluticasone (Flonase) 50 MCG/ACT nasal sprayIndication s:Seasonal allergic rhinitis, unspecified trigger INSTILL 1 SPRAY INTO EACH NOSTRIL TWICE A DAY as needed for allergies 16 g 3 11/25/19 24 Active nortriptyline (Pamelor) 50 MG capsuleIndicati ons:Chronic depression TAKE 1 CAPSULE BY MOUTH EVERY DAY 30 capsule 11 03/16/20 24 Active albuterol 108 (90 Base) MCG/ACT inhalerIndicati ons:Exacerbatio n of intermittent asthma, unspecified asthma severity 2 puffs Every 4-6 hours as needed for SOB, wheezing 18 g 2 05/17/19 25 Active budesonide-form oterol (Symbicort) 160-4.5 MCG/ACT inhalerIndicati ons:Chronic obstructive asthma ([facility]) Inhale 2 puffs in the morning and at bedtime. Rinse mouth with water after use to reduce aftertaste and incidence of candidiasis. Do not swallow. 1 each 05/17/19 25 2025 Active amLODIPine (Norvasc) 5 MG tabletIndicatio ns:Essential hypertension Take 1 tablet (5 mg) by mouth Once per day. 30 tablet 05/17/19 25 2025 Active Blood Pressure kitIndications: Elevated blood pressure reading in office without diagnosis of hypertension Take BP daily seated in chair with feet on floor 1 kit 05/25/19 25 Active Calcium Carb-Cholecalci ferol (Calcium + Vitamin D3) 600-10 MG-MCG tabletIndicatio ns: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[facility]) Take 1 tablet by mouth 2 times daily. 60 tablet 5 09/26/19 25 Active Umeclidinium [place] 62.5 MCG/ACT aerosol powderIndicatio ns:Chronic obstructive asthma (CMS/HCC) Inhale 1 Act (62.5 mcg) in the morning. INHALE 1 PUFF BY MOUTH ONCE DAILY. 30 each 5 11/10/19 25 Active Umeclidinium [place] 62.5 MCG/ACT aerosol powderIndicatio ns:Chronic obstructive asthma (CMS/HCC) Inhale 1 Act (62.5 mcg) Once daily. INHALE 1 PUFF BY MOUTH ONCE DAILY 30 each 3 07/13/19 25 2024 Discontinued(R eorder (will not trigger notification to Pharmacy)) Active Problems Problem Noted Date Diagnosed Date Memory loss 02/06/2024 Overview (02/06/2024): new 12/2023. labs as ordered. optimize sleep. MOCA w/ team RN. f/u pending results. 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 She had resultant dysphagia. She was s/p cricopharyngeal myotomy 10/30 with improvement in voice and some improvement in dysphagia. She underwent suspension microlaryngoscopy with Juvederm injection into the right vocal fold for her dysphagia and hoarseness on 06/15/17. Today, the patient denies pain, but endorses weakening of her voice again. I explained that our options are to perform a repeat Juvederm injection, or we can proceed with a larger surgery. The patient prefers to do another Juvederm injection. She may be open to other options after the next surgery. PLAN: I have recommended surgery to this patient and the expected outcome of this surgery was discussed in detail. The risks, benefits, and alternatives explained. Patient had a chance to ask questions during this interactive discussion. A written copy of the consent was given to the patient. The patient wishes to proceed and will be scheduled at their convenience. The surgery I recommended is: Direct Laryngoscopy and Vocal cord augmentation, with Injection into right vocal cord. Look into throat and larynx and inject right vocal cord with Juvederm to augment them. Risks include worsening voice (usually temporary), airway obstruction, bleeding, infection, need for additional injection if some absorption occurs. 06/08/07- Underwent right glomus vagale excision with sacrifice of vagus nerve with expected right vocal cord paralysis. 09/25/07- RIGHT pharyngoplasty and RIGHT cymetra vocal cord augmentation by Dr. Sierra 12/28/07- RIGHT vocal cord cymetra augmentation by Dr. Sierra [place] [facility] 06/26/08- Modified Barium Swallow with aspiration. no bar noted but could be due to early termination 07/29/08- Silastic right vocal cord laryngoplasty 11/27/08 FEES- recommended Botox for excess saliva 01/24/09- botox both parotids 25Units each 06/11/09- swallow eval by Dr. Aburto- able to swallow liquids with head tilt but seems patient chooses to be NPO. also possible UES tightness. 09/04/09- GI could not get manometry probe into patient due to tightness of UES 09/12/09- attempt at manometry probe placement in [facility] clinic unsuccessful since the UES too tight per Dr. Aburto 12/08/09- Panendoscopy with injection of botox into cricopharyngeus 06/15/17- Suspension microlaryngoscopy with Juvederm injection into the right vocal fold; rigid esophagoscopy by Dr. Farr 02/22/18- Suspension microlaryngoscopy with Juvederm injection into the right vocal fold by Dr. Farr 01/17/19- Suspension microlaryngoscopy with Juvederm injection into the right vocal fold by Dr. Farr 04/23/20- Suspension microlaryngoscopy with Juvederm injection into the right vocal fold by Dr. Farr Last Assessment & Plan: Donna Hua is a 71 year old female presenting in follow up with vocal cord paralysis. I last saw her on 01/26/21 when I discussed the options of moving forward implant readjustment or another Juvederm injection. Today, she endorses worsening dysphonia and dysphagia. She states that she used to be able to eat mashed potatoes and is now unable to do so. She endorses coughing and not being able to breathe when she swallows. She has lost 10 lbs due to this and has to now use her feeding tube for nutrient intake. She is also unable to drink water most of the time and occasionally only drinks water for pleasure. She denies any pneumonia. She endorses that her throat and neck are very sensitive to palpation and that she is even unable to scratch her ear without experiencing any discomfort. She is still not interested in proceeding with an implant readjustment because it is a more serious surgery. Exam of head and neck including nasolaryngoscopy shows similar exam findings to 01/26/21 including right vocal fold paralysis. I thoroughly discussed the exam findings with her. I informed her that her worsening dysphagia and dysphonia are likely due to the injured nerves in her throat and neck secondary to her previous surgery by Dr. Sierra and her condition will likely not improve with time. I informed her that I was unable to visualize any reasons for her worsening dysphagia, but it could be attributed to the weakened nerves in her neck and normal aging processes. Unfortunately, I am unable to offer her surgical intervention to improve her swallowing, but I offered her the option of another Juvederm injection. I thoroughly discussed the risks, benefits, and recovery required of the surgery. She expressed interest in proceeding with this. I have recommended surgery to this patient and the expected outcome of this surgery was discussed in detail. The risks, benefits, and alternatives explained. Patient had a chance to ask questions during this interactive discussion. A written copy of the consent was given to the patient. The patient wishes to proceed and will be scheduled at their convenience. Also present during this informed consent discussion was her partner. The surgery I recommended is: PLAN: -- Schedule suspension microlaryngoscopy with Juvederm injection into the right vocal fold Last Assessment & Plan: Had CT since last visit and it showed no evidence of recurrent disease. Voice is stable. Since she does not go outside very much, does not need to project her voice. Since her voice is reasonably good, recommend she contact me when it starts to degrade. Then we could plan for another juvederm injection. She has declined revision medialization laryngoplasty of her silastic implant in the past. 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 Neg rapid covid/Influenza tests. Sent for PCR Recommended albuterol inh q4h x 2d then prn PRD 20mg x 5d Tylenol q6h prn , increased fluid intake. RTC if sxs worsen Moderate persistent asthma 01/24/2015 Pharyngeal dysphagia 01/24/2015 Chronic depression 11/20/2014 Knee pain 03/31/2012 Gastroesophageal reflux disease without esophagi tis 12/09/2011 Depressive disorder 09/16/2011 Disorder of skeletal muscle 09/16/2011 Dysphagia 09/16/2011 Overview (04/02/2022): She reports only eating soup and mashed potatoes orally and drinks fluids fine. Gets most of her nutrition via her gastric tube. Last Assessment & Plan: She reports only eating soup and mashed potatoes orally and drinks fluids fine. 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 The patient knew this preoperatively. She has resultant dysphagia. She is s/p cricopharyngeal myotomy with improvement in voice and some improvement in dysphagia. currently NEW issue of worsening swallowing and g tube dependent again. - will send for swallow evaluation - Return to clinic after swallow test. 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 Encounters Date Type Department Care Team Description 11/20/2024 2:00 PM EDT Office Visit [address] [address] Carolina Robbins ANP Memory loss (Primary Dx); Gastrostomy tube in place ([facility]); Chronic obstructive asthma ([facility]); Insomnia, unspecified type; Latex allergy; Healthcare maintenance; Easy bruising; Left leg swelling; Pressure urticaria 11/20/2024 Travel 11/13/2024 Patient Outreach [address] [address] Carolina Robbins ANP Pre-visit Planning ([facility] screening completed on 05/04/2024) 11/09/2024 Refill [facility] [address] [place] [address] Carolina Robbins ANP Chronic obstructive asthma ([facility]/HCC) 09/24/[address] [address] Carolina Robbins ANP Med Refill 09/24/2024 Refill [facility] [address] [place], [place] [id number] Carolina Robbins ANP 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[facility]/HCC) 09/20/[address] [address] Carolina Robbins ANP Durable Medical Equipment 09/04/[address] [address] Carolina Robbins ANP Appointment Request 08/24/2024 Telephone [facility] [address] [place] [address] ReggieStanislaw graham ABDI 08/24/2024 Telephone [facility] [address] [place] [address] ReggieStanislaw graham [place] Reschedule appt 08/23/2024 Telephone [facility] [address] [place], [place] [phone] Carolina Robbins ANP chartprep from Last 3 Months Immunizations Immunization Administration Dates Next Due Influenza High-dose Quadriva lent Preservative Free 01/05/2023,01/11/2020 Influenza Quadrivalent Adjuvanted 03/24/2022, Influenza injectable quadriv alent IIV4 with preservative 12/16/2016,01/24/2015 Influenza injectable quadriv alent preservative free 04/15/2016 Influenza, High Dose Seasona l, Preservative Free 02/06/2024,02/22/2019,12/28/2017 Influenza, IIV3, injectable 12/19/2020,1 ,01/17/2018,11/19,02/12/2014,11/25/2010 Influenza, Split (incl. ankush fied surface antigen) 01/26/2013,11/30/2011 Influenza, seasonal, injecta ble, preservative free 12/11/2015 Pfizer Covid-19 Vaccine 12+ 02/06/2024 Pneumococcal Conjugate PCV 13 01/24/2015 Pneumococcal Conjugate PCV 20 01/05/2023 Pneumococcal Polysaccharide PPSV23 07/24/2020,,02/15/2007 TD (adult), 2 Lf tetanus tox oid, preservative free, adsorbed 01/05/2023 Tdap 10/25/2012 Zoster, Recombinant 11/05/2020,08/29/2020 Zoster, live 06/21/2014 Social History Tobacco Use Types Packs/Day Years Used Date Smoking Tobacco: Never Passive Smoke Exposure: Never Smokeless Tobacco: Never Tobacco Cessation:Counseling Given: Not Answered Alcohol Use Standard Drinks/Week Comments Never 0 [...] Orientation Straight 01/18/2022 10 :19 AM EDT Last Filed Vital Signs Vital Sign Reading [...] Mass Index 31.57 11/20/2024 2:12 PM EDT Plan of Treatment Health Maintenance Due Date Last Done Comments CT Colonography 1949 FIT DNA/Cologuard 1949 FIT 1949 FOBT 1950 Sigmoidoscopy 1949 Alcohol/Substance Use Screening 1961 Hepatitis C Screening 1967 Colonoscopy 07/21/2024 07/21/2021 Colorectal Cancer Screening 07/21/2024 Lipid Panel 10/07/2024 10/08/2019 Influenza Vaccine (#1) 2024 , 01/05/2023, 03/24/2022, Additional history exists Depression Screening 02/05/2025 02/06/2024, 02/06/20 24 SDOH Screening 05/04/2025 05/04/2024 Tobacco Screening 11/20/2025 11/20/2024 DTaP/Tdap/Td Vaccines (4 - Td or Tdap) 07/19/2034 07/19/2024, 01/05/2023, 10/25/2012 Zoster Vaccines Completed 11/05/2020, 08/19, 06/21/2014 COVID-19 Vaccine Completed 07/19/2024, , 05/04/2021, Additional history exists RSV Patients and Patients Aged 60 years or older Completed 07/19/2024 Pneumococcal Vaccine: 50+ Years Completed 07/27/2024, 01/05/2023, 07/24/2020, Additional history exists HIB Vaccines Aged Out No longer eligi ble based on patient's age to complete this topic HPV Vaccines Aged Out No longer eligi ble based on patient's age to complete this topic Hepatitis A Vaccines Aged Out No long er eligible based on patient's age to complete this topic Hepatitis B Vaccines Aged Out No long er eligible based on patient's age to complete this topic IPV Vaccines Aged Out No longer eligi ble based on patient's age to complete this topic Meningococcal B Vaccine Aged Out No l onger eligible based on patient's age to complete this topic Meningococcal Vaccine Aged Out No rio graham eligible based on patient's age to complete this topic RSV under 20 months Aged Out No longe r eligible based on patient's age to complete this topic Rotavirus Vaccines Aged Out No longer eligible based on patient's age to complete this topic Procedures Procedure Name Priority Date/Time Associated Diagnosis Comments COLONOSCOPY Routine 07/21/2021 9:39 AM EDT LIPID PANEL, STANDARD Routine 10/08/2019 10:05 AM EDT from Last 3 Months or Most Recently Relevant to Health Maintenance Results * Colonoscopy (07/21/2021 9:39 AM EDT) us Historical Provider MD HEALTH MAINTENANCE Final Result * (ABNORMAL) LIPID PANEL, STANDARD (10/08/2019 10:05 AM EDT) HDL Cholesterol 89 > OR = 50 mg/dL [facility] Cholesterol, Total 238(H) <200 mg/dL [facility] Non-HDL Cholesterol 149(H) <130 mg/dL (calc) [facility] Comment: For patients with diabetes plus 1 major ASCVD risk factor, treating to a non-HDL-C goal of <100 mg/dL (LDL-C of <70 mg/dL) is considered a therapeutic option. Triglycerides 148 <150 mg/dL [facility] HDL Cholesterol 89 > OR = 50 mg/dL [facility] Non-HDL Cholesterol 149(H) <130 mg/dL (calc) [facility] Comment: For patients with diabetes plus 1 major ASCVD risk factor, treating to a non-HDL-C goal of <100 mg/dL (LDL-C of <70 mg/dL) is considered a therapeutic option. Triglycerides 148 <150 mg/dL [facility] Chol/HDLC Ratio 2.7 <5.0 (calc) [facility] Cholesterol, Total 238(H) <200 mg/dL [facility] Triglycerides 148 <150 mg/dL [facility] LDL Cholesterol 123(H) mg/dL (calc) [facility] Comment: Reference range: <100 Desirable range <100 mg/dL for primary prevention; <70 mg/dL for patients with CHD or diabetic patients with > or = 2 CHD risk factors. LDL-C is now calculated using the Earnestine calculation, which is a validated novel method providing better accuracy than the Friedewald equation in the estimation of LDL-C. Omar WYLIE et al. BEBA. 2013;310(19): 6430-0658 (http://education.[employer] Systems/faq/FMF661) Chol/HDLC Ratio 2.7 <5.0 (calc) [facility] HDL Cholesterol 89 > OR = 50 mg/dL [facility] Cholesterol, Total 238(H) <200 mg/dL [facility] LDL Cholesterol 123(H) mg/dL (calc) [facility] Comment: Reference range: <100 Desirable range <100 mg/dL for primary prevention; <70 mg/dL for patients with CHD or diabetic patients with > or = 2 CHD risk factors. LDL-C is now calculated using the Omar-Gibbs calculation, which is a validated novel method providing better accuracy than the Friedewald equation in the estimation of LDL-C. Omar SS et al. BEBA. 2013;310(19): 7669-1038 (http://education.[employer]/faq/HTO977) Chol/HDLC Ratio 2.7 <5.0 (calc) [facility] Chol/HDLC Ratio 2.7 <5.0 (calc) [facility] Cholesterol, Total 238(H) <200 mg/dL [facility] Non-HDL Cholesterol 149(H) <130 mg/dL (calc) [facility] Comment: For patients with diabetes plus 1 major ASCVD risk factor, treating to a non-HDL-C goal of <100 mg/dL (LDL-C of <70 mg/dL) is considered a therapeutic option. LDL Cholesterol 123(H) mg/dL (calc) [facility] Comment: Reference range: <100 Desirable range <100 mg/dL for primary prevention; <70 mg/dL for patients with CHD or diabetic patients with > or = 2 CHD risk factors. LDL-C is now calculated using the Omar-Gibbs calculation, which is a validated novel method providing better accuracy than the Friedewald equation in the estimation of LDL-C. Omar SS et al. BEBA. 2013;310(19): 9972-7890 (http://education.[employer]/faq/IXC060) HDL Cholesterol 89 > OR = 50 mg/dL [facility] Triglycerides 148 <150 mg/dL [facility] LDL Cholesterol 123(H) mg/dL (calc) [facility] Comment: Reference range: <100 Desirable range <100 mg/dL for primary prevention; <70 mg/dL for patients with CHD or diabetic patients with > or = 2 CHD risk factors. LDL-C is now calculated using the Earnestine calculation, which is a validated novel method providing better accuracy than the Friedewald equation in the estimation of LDL-C. Omar WYLIE et al. BEBA. 2013;310(19): 3404-5940 (http://education.[employer]/faq/JAW528) Non-HDL Cholesterol 149(H) <130 mg/dL (calc) [facility] Comment: For patients with diabetes plus 1 major ASCVD risk factor, treating to a non-HDL-C goal of <100 mg/dL (LDL-C of <70 mg/dL) is considered a therapeutic option. 10/08/2019 10:0 5 AM EDT us Tod Villegas [facility] LAB BLOOD ORDERABLES Final Res ult [facility] [address] from Last 3 Months or Most Recently Relevant to Health Maintenance Insurance CARE OPTIONS (O D-SNP) ALEX CASTANEDA [id number] Care Teams Telephone Answerer Relationship Specialty Start Date End Date Carolina Robbins ANP [address] [place] [address] PCP - General Family Medicine 11/19/19
--- OUTSIDE RECORDS SUMMARY | 2024-11-20 16:27 | XMS_ITS | Encounter Summary ---
Author Organization [employer] Address [address] [place] [address] Care Team Providers Care Siene Maker Name Role Phone Carolina Robbins Primary Care Provider [phone] Encounter Details Date Type Department Care Team (Late st Contact Info) Description 07/19/2023 Orders Only [facility] [address] [place] [address] Provider, MD Kelsey Social History Tobacco Use Types Packs/Day Years [...] on file documented as of this encounter Procedures Procedure Name Priority Date/Time Associated Diagnosis Comments HM COLONOSCOPY Routine 07/21/2021 9:39 AM EDT documented in this encounter Results * Hm Colonoscopy (07/21/2021 9:39 AM EDT) us Historical Provider HEALTH MAINTENANCE Final Result documented in this encounter Visit Diagnoses Not on filedocumented in this encounter Additional Health Concerns Assessment Noted Time PHQ-9 Depression Total Score: 0 01/06/20 23 3:01 PM EDT documented as of this encounter Care Teams Siene Maker Relationship Specialty Start Date End Date Carolina Robbins ANP [address] [place] [id number] PCP - General Family Medicine 11/19/19 documented as of this encounter
--- OUTSIDE RECORDS SUMMARY | 2024-11-20 16:27 | XMS_ITS | Encounter Summary ---
Author Organization [employer] Address 75 [facility] 7t [place] [address] Care Team Providers Care Grape Cutter Name Role Phone Carolina Robbins Primary Care Provider [phone] Reason for Visit * Reason Onset Date Comments Med Refill 09/24/2024 Encounter Details Date Type Department Care Team ([facility] st Contact Info) Description 09/24/2024 Telephone [facility] [address] [place] [address] Carolina Robbins ANP 230 [place] [address] Med Refill Social History Tobacco Use Types [...] encounter Miscellaneous Notes * Telephone Encounter - eLtty Hale LPN - 09/24/2024 1:55 PM EDT Medication pended to provider. * Telephone Encounter - Paul Mascorro - 09/24/2024 1:42 PM EDT TC from pt requesting medication refill. Medications needing refill : Calcium Carb-Cholecalciferol (Calcium + Vitamin D3) 600-10 MG-MCG tablet To be sent to: [facility] [address] [place] [address] documented in this encounter Plan of Treatment Not on file documented as of this encounter Visit Diagnoses Not on filedocumented in this encounter Additional Health Concerns Assessment Noted Time PHQ-9 Depression Total Score: 7 02/06/20 24 1:32 PM EST documented as of this encounter Care Teams Grape Cutter Relationship Specialty Start Date End Date Carolina Robbins ANP [address] [place] [id number] PCP - General Family Medicine 11/19/19 documented as of this encounter
--- OUTSIDE RECORDS SUMMARY | 2024-11-20 16:27 | XMS_ITS | Encounter Summary ---
Author Organization [employer] Address 75 [facility] 7t [place] [address] Care Team Providers Care Wine Merchant Name Role Phone Carolina Robbins Primary Care Provider [phone] Encounter Details Date Type Department Care Team (Late st Contact Info) Description 07/12/[address] [facility] MED[facility]INE 230 [place] [address] Carolina Robbins ANP 230 [place] [address] Social History Tobacco Use Types Packs/Day Years [...] documented as of this encounter Care Teams Wine Merchant Relationship Specialty Start Date End Date Carolina Robbins ANP [address] [place] [id number] PCP - General Family Medicine 11/19/19 documented as of this encounter
--- OUTSIDE RECORDS SUMMARY | 2024-11-20 16:27 | XMS_ITS | Encounter Summary ---
Author Organization [employer] Address 75 [facility] 7t [place] [address] Care Team Providers Care Window Covering Sales Consultant Name Role Phone Carolina Robbins Primary Care Provider [phone] Encounter Details Date Type Department Care Team (Late st Contact Info) Description 07/12/2023 Abstract [facility] MED[facility]INE [address] [place] [address] Carolina Robbins ANP [address] [place] [address] Social History Tobacco Use Types Packs/Day Years [...] Procedure Name Priority Date/Time Associated Diagnosis Comments MAMMOGRAPHY Routine 07/12/2023 11:38 AM EDT documented in this encounter Results * Mammography (07/12/2023 11:38 AM EDT) Mammogram BIRADS 2 Normal, Abnormal, BIRADS 1 , BIRADS 2 Anatomical Region Laterality Modality Other Historical Provider HEALTH MAINTENANCE Final Result documented in this encounter Visit Diagnoses Not on filedocumented in this encounter Additional Health Concerns Assessment Noted Time PHQ-9 Depression Total Score: 0 01/06/20 23 3:01 PM EDT documented as of this encounter Care Teams Window Covering Sales Consultant Relationship Specialty Start Date End Date Carolina Robbins ANP [address] [place] [id number] PCP - General Family Medicine 11/19/19 documented as of this encounter
--- OUTSIDE RECORDS SUMMARY | 2024-11-20 16:27 | XMS_ITS | Encounter Summary ---
Author Organization [employer] Address 75 [facility] 7t [place] [address] Care Team Providers Care Installer Inspector Final Name Role Phone Carolina Robbins Primary Care Provider [phone] Reason for Visit * Reason Onset Date Comments FYI 05/30/2023 Encounter Details Date Type Department Care Team ([facility] st Contact Info) Description 05/30/2023 Telephone [facility] 230 [place] [address] Carolina Robbins ANP 230 [place] [address] FY Social History Tobacco Use Types Packs/Day Years [...] encounter Miscellaneous Notes * Telephone Encounter - Jaden Darden - 06/02/2023 2:06 PM EDT Tc from pt requesting status on message prior. * Telephone Encounter - Candice Mosquera - 05/30/2023 11:07 AM EDT Tc from [employer] calling to advise provider Wound care Evaluation Form was sent incomplete and will need to be resent with all questions answered. documented in this encounter Plan of Treatment Not on file documented as of this encounter Visit Diagnoses Not on filedocumented in this encounter Additional Health Concerns Assessment Noted Time PHQ-9 Depression Total Score: 0 01/06/20 23 3:01 PM EDT documented as of this encounter Care Teams Installer Inspector Final Relationship Specialty Start Date End Date Carolina Robbins ANP [address] [place] [phone] PCP - General Family Medicine 11/19/19 documented as of this encounter
--- OUTSIDE RECORDS SUMMARY | 2024-11-20 16:27 | XMS_ITS | Encounter Summary ---
Author Organization [employer] Address [address] [facility] 7t [place] [address] Care Team Providers Care Hat Parts Cutter Machine Name Role Phone Carolina Robbins Primary Care Provider [phone] Encounter Details Date Type Department Care Team (Latest Contact Info) Description 11/20/2024 Travel Social History Tobacco Use Types Packs/Day Years [...] documented as of this encounter Care Teams Hat Parts Cutter Machine Relationship Specialty Start Date End Date Carolina Robbins ANP 230 [place] [address] PCP - General Family Medicine 11/19/19 documented as of this encounter
[2024-11-20 17:41] LABS: MANUAL DIFF FLAG NO
[2024-11-20 17:47] LABS: Hematocrit 41.1 % (37.0-47.0); Hemoglobin 13.8 g/dl (12.0-16.0); Imm Gran Abs Auto 0.04 X10*3/uL (0.00-0.03); Imm Gran Pct Auto 0.4 % (0.0-0.4); Lymphocytes Absolute Auto 2.3 X10*3/uL (1.2-4.9); Mean Corpuscular HGB Conc 33.6 g/dl (31.0-35.0); Mean Corpuscular Hemoglobin 32.7 pg (27.0-33.0); Mean Corpuscular Volume 97.4 fL (80.0-98.0); NRBC Abs Auto 0.000 X10*3/uL (0.0-0.012); NRBC Pct Auto 0.0 /100WBC (0.0-0.2); Platelet Count 251 X10*3/uL (160-400); Red Blood Count 4.22 X10*6/uL (4.20-5.50); White Blood Count 8.9 X10*3/uL (4.8-10.8)
[2024-11-20 17:53] LABS: Hemoglobin A1C 139.2030 umol/L; Total Hemoglobin (HGBA1C) 3623.8677 umol/L
[2024-11-20 18:47] LABS: Cholesterol 202 mg/dL (<200); HDL Cholesterol 55 mg/dL (>40); Iron 65 mcg/dL (30-160); Percent Iron Saturation 24 % (15-50); Total Iron Binding Capacity 276 mcg/dL (228-428); Triglycerides 114 mg/dL (<150); Unsaturated Iron Binding 211 ug/dL
[2024-11-20 18:59] LABS: Vitamin B12 1044 pg/mL (200-900)
== END 2024-11-20 15:21 | disposition home or self-care (01) ==
LOC: HO.HHCL 15:20
PROVIDERS: PCP Nurse Practitioner Primary Care; Visit Provider Nurse Practitioner Primary Care
DX: Z00.00 Encounter for general adult medical examination without abnormal findings (principal); R41.3 Other amnesia; R23.3 Spontaneous ecchymoses; Z13.6 Encounter for screening for cardiovascular disorders; Z13.1 Encounter for screening for diabetes mellitus
CPT/HCPCS: 36415; 80061; 82607; 83036; 83540; 84443; 85025; 86592

== ENCOUNTER 2024-12-11 09:47 | Inpatient (IN) | payer OTHER, SELFPAY ==
--- OUTSIDE RECORDS SUMMARY | 2023-08-03 10:40 | XMS_ITS ---
Author Organization [facility] tiffany Hendrix Address [address] [place] [address] Care Team Providers Care Woods Rider Name Role Phone JESÚS SÁNCHEZ N.P. Primary Care Provider Benny Olmos Jr REASON FOR VISIT G TUBE REPLACEMENT Encounters Encounter Location Date Provider Diagnosis [facility] [place] [facility] [address] [place], [place] [id number] 08/03/2023 Benny Sanabria Jr Gastrostomy malfunction K94.23 Assessments Encounter Date Diagnosis (ICD Code) Assessment Notes Treatment Notes Treatment Clinical Notes Section Notes 08/03/2023 Gastrostomy malfunction (ICD-10 - K94.23) Plan Of Treatment Next Appt Details Provider Name:Benny carrillo Jr, 12/24/2024 02:35:00 PM, [address], [address], [place], [address], Progress Notes * HAN, REGINADOB:1950 (74 yo F)Acc No.[id number]:08/03/2023 Progress Notes Patient: REGINA MCCLAIN Provider: Jd Sanabria MD :1950 A ge:73 Y S ex:Female Date:08/03/2023 Address:[address] [place] [address] Pcp:JESÚS SÁNCHEZ N.P. Subjective: * Chief Complaints: * 1 . G TUBE REPLACEMENT. * Medical History: Objective: * Vitals: Assessment: * Assessment: 1. G astrostomy malfunction - K94.23 (Primary) Plan: * Treatment: * Procedure Codes: 4 3761 REPOSITION GASTROSTOMY TUBE * * The named appointment provid er may or may not be the originator of this progress note, and it is not deemed complete until electronically signed by the appointment provider. Sign off status: Pending * Provider: Jd Sanabria MD Date: 0 08/03/2023 Generated for Gloria rader/Ngozi/Annabelleitting on: 0 12/11/2024 12:36 PM EDT
--- OUTSIDE RECORDS SUMMARY | 2024-06-06 09:00 | XMS_ITS ---
Author Organization [facility] tiffany Hendrix Address [address] [place] [address] Care Team Providers Care Grape Crusher Name Role Phone JESÚS SÁNCHEZ N.P. Primary Care Provider Benny Olmos Jr [phone] REASON FOR VISIT dysphagia Encounters Encounter Location Date Provider Diagnosis [facility] [place] [address] [place], [place] [id number] 06/06/2024 Benny Sanabria Jr Gastrostomy malfunction K94.23 and Dysphagia R13.10 Assessments Encounter Date Diagnosis (ICD Code) Assessment Notes Treatment Notes Treatment Clinical Notes Section Notes 06/06/2024 Gastrostomy malfunction (ICD-10 - K94.23) 06/06/2024 Dysphagia (ICD-10 - R13.10) Plan Of Treatment Next Appt Details Provider Name:Benny carrillo Jr, 12/24/2024 02:35:00 PM, [address] [facility], [address], [place], [address], Progress Notes * REGINA HANDOB:1950 (74 yo F)Acc No.[id number]:06/06/2024 Peg Change Patient: ALEX MCCLAINZ Provider: Jd Sanabria MD :1950 A ge:74 Y S ex:Female Date:06/06/2024 Address:[address] [place] [address] Pcp:JESÚS SÁNCHEZ N.P. Subjective: * Chief Complaints: * 1 . Dysphagia. * Medical History: Objective: * Vitals: Assessment: * Assessment: 1. G astrostomy malfunction - K94.23 (Primary) 2 . D ysphagia - R13.10 Plan: * Treatment: * Procedure Codes: 4 3762 percutaneous gastrostomy tube placement including removal without imaging or endoscopic guidance not requiring revision of the gastrostomy * * The named appointment provid er may or may not be the originator of this progress note, and it is not deemed complete until electronically signed by the appointment provider. Sign off status: Pending * Provider: Jd Sanabria MD Date: 0 06/06/2024 Generated for Gloria rader/Ngozi/Annabelleitting on: 0 12/11/2024 12:36 PM EDT
[2024-12-11] VITALS (7 sets, daily range): BP systolic 108–148; BP diastolic 60–76; PULSE 76–93; RESP 16–18; TEMP 35.8–37.4; O2SAT 91–97; BMI 31.5
--- NOTE | ~2024-12-11 | CT_ITS ---
EXAMINATION: CT ABDOMEN AND PELVIS WITH CONTRAST CLINICAL INFORMATION: J-tube not working, abdominal wall infection near G-tube site. COMPARISON: 07/07/2018 TECHNIQUE: Multidetector volumetric images were obtained from the superior aspect of the liver through the pubic symphysis following administration 85 mL of Omnipaque 350 intravenous contrast. Sagittal and coronal reformatted images were obtained on the technologist's workstation. Oral contrast: No This CT examination was performed using dose optimization techniques as appropriate, variously including the following: *Automated exposure control *Adjustment of mA and/or kV according to patient size (this includes techniques or standardized protocols for targeted exams where dose is matched to indication/reason for exam; i.e. extremities or head) *Use of iterative reconstruction technique FINDINGS: LUNG BASES: Reticular scarring is present in the right middle lobe and lingula with associated bronchiectasis. There is mild bronchiectasis in both lower lobes. No consolidation. No effusions. Heart size is normal. No pericardial effusion. LIVER, GALLBLADDER, AND BILIARY TREE: The liver is normal in size, shape, and attenuation. No focal hepatic lesion or biliary ductal dilatation is present. The gallbladder is unremarkable with no evidence of radiopaque gallstones, gallbladder wall thickening, or obvious pericholecystic inflammatory changes. PANCREAS: Mild to moderate atrophy. No lesions. SPLEEN: Unremarkable. ADRENAL GLANDS: Unremarkable. KIDNEYS AND URETERS: The kidneys are normal in size, shape, and attenuation. No hydronephrosis, hydroureter, or calculi seen. No perinephric stranding. There are tiny right renal cysts. There are bilateral extrarenal pelves. BLADDER: Well-distended and normal. GASTROINTESTINAL TRACT: Of note, the NG tube has retracted into the abdominal wall, and both the tip and balloon are superficial to the rectus sheath. The stomach appears tethered to the G-tube access site and the abdominal wall. Stomach is otherwise normal. Duodenum appears normal. Small second segment diverticulum. Small bowel is normal in caliber and course. Normal appendix visualized. Colon demonstrates scattered diverticula, without wall thickening or inflammation. No rectal abnormality. PERITONEUM: Haziness of the central small bowel mesentery, consistent with sclerosing mesenteritis. ABDOMINAL WALL: G-tube access site in the left paramedian epigastric region. No significant hernia or mass. LYMPH NODES: No abnormal lymphadenopathy. VASCULAR: Normal. PELVIC VISCERA: The uterus and adnexa are unremarkable. OSSEOUS STRUCTURES: There is no suspicious lytic or blastic bone lesion. There are mild degenerative changes in the lumbar spine. CT/CT abdomen pelvis w IV con IMPRESSION: 1. The G tube has retracted into the abdominal wall as detailed. Both the tip and balloon are superficial to the rectus sheath. The stomach remains tethered to the anterior abdominal wall at the access site. 2. No additional acute findings in the abdomen or pelvis. 3. Ancillary findings as discussed in the body of the report. Electronically signed by: Primo Dolan MD 12/11/2024 01:49 PM EDT
--- NOTE | 2024-12-11 10:26 | ED.GENADULT ---
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 She has not had a fever. She feels a lump above it. No n/v/d. She has not had this happen before. She notes for 24 hours she cannot flush it or use it. She has not been able to eat or drink. MD complaint: feeding tube site infection Onset (ago): day(s) (3) Location: abdomen Radiation: non-radiation Severity: moderate Quality: aching Pain Consistency: constant Relieving factors: none Exacerbating factors: movement Associated symptoms: rash Treatments prior to arrival: none Related Data Home Medications ?Medication ?Instructions ?Recorded ?Confirmed fluticasone propionate 110 2 puff inhalation Q4-6H PRN 01/21/20 04/28/22 mcg/actuation HFA aerosol inhaler Shortness Of Breath Or Wheezing calcium 600 mg (as 1 tab PO BID 04/28/22 04/28/22 carbonate)-vitamin D3 10 mcg (400 unit) tablet nortriptyline 50 mg capsule 50 mg PO BEDTIME 04/28/22 04/28/22 fluticasone propionate 50 spray intranasal 04/29/23 mcg/actuation nasal spray,suspension Allergies Allergy/AdvReac Type Severity Reaction Status Date / Time latex (LATEX) Allergy Unknown RASH Verified 12/11/24 09:58 Review of Systems Review of Systems: Constitutional : No Fever, No Chills ENT/Mouth : No sore throat, No Rhinorrhea Eyes: No Eye Pain, No Swelling, No Redness Cardiovascular : No Chest Pain, No SOB Respiratory : No Cough, No Sputum Gastrointestinal : No Nausea, No Vomiting, No Diarrhea, No abdominal Pain Genitourinary : No Dysuria, No Hematuria Musculoskeletal : No joint pain, No Myalgias, No Joint Swelling Skin : pos Skin Lesions, positive skin rash All other systems reviewed and are negative PMFSH Past Medical History Attestation statement: The following information was validated with the patient. Source: old records reviewed Medical History Shortness of breath Chest pain History of palpitations Hx of cataract Urinary incontinence Dysphagia Degenerative joint disease Asthma GERD (gastroesophageal reflux disease) Gastritis Paraganglioma Feeding by G-tube Surgical History Hx of cataract extraction Hx of colonoscopy H/O neck surgery H/O section History of throat surgery Family History Family History Father No problems noted. Mother No problems noted. Social History Social History Are you a primary managed care specialist to a significant other at home: No Do you presently have visiting nurse or other home services: Yes (TRAIN ENGINEER 2 x week) Alcohol intake: never Patient Tobacco Use Status: Never used Tobacco Smoked in Last 30 Days: No Use of substances other than those prescribed or required for medical reasons: No Advance Directives: Yes Advance Directives Information Provided: No Advance Directives on File: No Do you have a plan to hurt others: No Plan Physical Exam ED Vital Signs: Vital Signs - 24 hr 12/11/24 09:56 12/11/24 10:51 12/11/24 12:41 Temperature 99.4 F 98.1 F Pulse Rate 76 93 87 Respiratory Rate 18 16 16 Blood Pressure 108/68 125/60 130/70 Pulse Oximetry 96 95 Oxygen Delivery Method Room Air Room Air BMI result Body Mass Index 31.5 Appearance: Alert. Oriented X3. No acute distress. Eyes: Pupils equal, round and reactive to light. ENT: Pharynx normal. Neck: Normal inspection. Neck supple. CVS: Normal heart rate and rhythm. Pulses normal. Respiratory: No respiratory distress. Breath sounds normal. Abdomen: Soft g tube site is red, painful with firm mass felt superior portion Skin: Skin warm and dry. Normal skin color. Normal skin turgor. Extremities: No lower extremity edema. No calf ttp Neuro: Oriented X 3. No motor deficit. No sensory deficit. CN2-12 intact Medications Administered Discontinued Medications Generic Name Dose Route Start Last Admin Trade Name Freq PRN Reason Stop Dose Admin Piperacillin Sod/Tazobactam 50 mls @ 100 mls/hr 12/11/24 10:10 12/11/24 11:20 Sod 3.375 gm/ Sodium Chloride IV 12/11/24 10:39 Infused ONCE ONE Infusion Lactated Ringer's 1,000 mls @ 999 mls/hr 12/11/24 10:12 12/11/24 11:55 Lr IV 12/11/24 11:12 Infused .Q1H1M ONE Infusion Iohexol 100 ml 12/11/24 13:26 12/11/24 13:26 Iohexol 350 Mg/Ml 100 Ml Infus..Btl IV 12/11/24 13:27 85 ml ONCE ONE Administration Morphine Sulfate 2 mg 12/11/24 10:12 12/11/24 10:47 Morphine Sulfate 2 Mg/Ml Cartridge IVPUSH 12/11/24 10:13 2 mg ONCE ONE Administration Protocol Morphine Sulfate 4 mg 12/11/24 14:28 12/11/24 14:31 Morphine Sulfate 4 Mg/Ml Cartridge IVPUSH 12/11/24 14:29 4 mg ONCE ONE Administration Protocol Ondansetron HCl 4 mg 12/11/24 10:12 12/11/24 10:45 Ondansetron Hcl 4 Mg/2 Ml Vial IVPUSH 12/11/24 10:13 4 mg ONCE ONE Administration Procedures Feeding Tube Replacement Type of Tube: gastrostomy Insertion Site Prior to Procedure: erythematous, excoriated, tender and swollen Tube Used for Reinsertion: Chowdary Swedish Tube Size (F): 18 Balloon size (mL): 10 Verification of Placement: auscultation Tube Secured by: tape/dressing Patient Tolerated Procedure: well and no complications Additional Comments: removed the initial feeding tube and it was very superficial with only 2mL in balloon scant bleeding Medical Decision Making Medical Decision Making MDM Narrative: 74 yo female with PMH of asthma, GERD, 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 Differential Diagnosis Differential Diagnoses: The differential diagnosis associated with the presentation includes cellulitis, abscess, blocked feeding tube, mass Admission/Observation Consideration of admission/observation: Escalation of care including admission/observation considered admit for IVF, IV abx tube change Consult Healthcare Provider Management of the patient was discussed with: Hospitalist and Shoe Stock Associate Zahira advised pulling feeding tube it was barely in place 2cc of fluid in balloon - at this time removed and will replace with chowdary 16F GI aware of plan to admit - Dr. Sanabria will see patient Lab Data MDM Lab Attestation statement: I reviewed the patient's lab results. 12/11/24 10:37 12/11/24 12:50 Labs: Lab Results 12/11/24 12/11/24 12/11/24 Range/Units 10:37 10:38 12:50 WBC 7.2 (4.8-10.8) X10*3/uL RBC 4.20 (4.20-5.50) X10*6/uL Hgb 13.7 (12.0-16.0) g/dl Hct 41.0 (37.0-47.0) % MCV 97.6 (80.0-98.0) fL MCH 32.6 (27.0-33.0) pg MCHC 33.4 (31.0-35.0) g/dl RDW 12.8 (11.0-16.0) % Plt Count 261 (160-400) X10*3/uL MPV 9.0 L (9.4-12.3) fL Immature Gran % (Auto) 0.1 (0.0-0.4) % Neut % (Auto) 63.2 (45-73) % Lymph % (Auto) 23.8 (20-40) % Angelina % (Auto) 11.1 H (2-11) % Eos % (Auto) 1.5 (0-4) % Baso % (Auto) 0.3 (0-2) % Lymph # (Auto) 1.7 (1.2-4.9) X10*3/uL Angelina # (Auto) 0.8 (0.1-1.2) X10*3/uL Eos # (Auto) 0.1 (0.0-0.4) X10*3/uL Baso # (Auto) 0.0 (0.0-0.2) X10*3/uL Abs Immat Gran (auto) 0.01 (0.00-0.03) X10*3/uL Absolute Neuts (auto) 4.6 (2.0-8.3) x10*3/uL Absolute Nucleated RBC 0.000 (0.0-0.012) X10*3/uL Nucleated RBC % (auto) 0.0 (0.0-0.2) /100WBC Sodium 140 (135-145) mmol/L Potassium 5.1 (3.3-5.1) mmol/L Chloride 104 (96-108) mmol/L Carbon Dioxide 31 H (22-29) mmol/L Anion Gap 10 L (12-20) BUN 9 (9-16) mg/dL Creatinine 0.58 (0.5-1.4) mg/dL Estim Creat Clear Calc 81.0 Estimated GFR > 60 Random Glucose 103 (60-115) mg/dL Lactic Acid 1.8 (0.5-2.0) mmol/L Calcium 9.5 (8.4-10.2) mg/dL Magnesium 2.1 (1.6-2.6) mg/dL Total Bilirubin 0.4 (0.0-1.0) mg/dL Direct Bilirubin 0.2 (0.0-0.5) mg/dL AST 22 (5-31) U/L ALT 16 (0-31) U/L Alkaline Phosphatase 83 (39-117) U/L C-Reactive Protein 4.61 H (< or = 0.50) mg/dL Total Protein 7.1 (6.5-8.0) g/dL Albumin 3.9 (3.5-5.0) g/dL Lipase 29 (8-78) U/L Procalcitonin 0.03 ng/mL Independent Interpretation I performed an independent interpretation of an: CT Scan Radiology Impression Discussion of test interpretation with radiology: I have reviewed the radiologist's reading. Independent Historian Clinical information obtained from an independent historian. History obtained from or confirmed by: Spouse External Record Review External record reviewed: Outpatient record Discharge Plan Discharge Clinical Impression: Abdominal wall cellulitis, Complication of feeding tube Patient Disposition: Admitted As Inpatient Print Language: South Sudanese
--- NOTE | 2024-12-11 10:56 | PC.NURSE ---
area around g tub eis very red/tender. no drainage. awaits CT. is aware of plan of care. moist mm.
--- OUTSIDE RECORDS SUMMARY | 2024-12-11 12:36 | XMS_ITS | Encounter Summary ---
Author Organization [employer] Address 75 [facility] 7t [place] [address] Care Team Providers Care Rn Staffing Name Role Phone Carolina Robbins ANP Primary Care Provider [phone] Reason for Visit * Reason Onset Date Comments Nurse Triage 11/09/2022 Encounter Details Date Type Department Care Team ([facility] st Contact Info) Description 11/09/2022 Telephone [facility] MEDICINE 230 [place] [address] Carolina Robbins ANP 230 [place] [address] Nurse Triage Social History Tobacco Use Types [...] 11/09/2022 5:23 PM EDT Triage call with [place] Knitting Inspector ID [id number] Pt answered the phone, Pt is in the shower. Requested call back. Advised will call back in the morning and agreed. * Telephone Encounter - Kayla Jacobo - 11/09/2022 4:54 PM EDT Patient calling to report rash (feeding tube). Patient speaks Surinamese. Advised triage nurse will call patient back. Patient speaks german documented in this encounter Plan of Treatment Not on file documented as of this encounter Visit Diagnoses Not on filedocumented in this encounter Care Teams Rn Staffing Relationship Specialty Start Date End Date Carolina Robbins ANP [address] [place] [address] PCP - General Family Medicine 11/19/19 documented as of this encounter
--- OUTSIDE RECORDS SUMMARY | 2024-12-11 12:36 | XMS_ITS | Patient Health Record ---
Author Organization [facility] Address [address] [place] [address] Care Team Providers Care Roofing Foreman Name Role Phone JESÚS SÁNCHEZ N.P. Primary Care Provider Benny Olmos Jr Unavailable [phone] Allergies Allergen (clinical drug ingredient) Drug/Non Drug Allergy documented on EMR Reaction Allergy Type Onset Date Status Latex latex (uncoded) Unknown Allergy Acti ve Reason For Referral No Information Medications Medication SIG (Take, Route, Frequency, Duration) Notes Start Date End Date Status Pulmicort Not-Taking Nortriptyline HCl 50 MG 1 capsule Orally Once a day 12/27/2018 Active Mometasone Furoate 0.1 % 1 application Externally Once a day as needed for 30 days 06/30/2022 Active Calcium Active Albuterol 90 MCG/ACT as directed Inhalat ion prn Active Immunizations Vaccine Route Administration Date Status Comme nts Influenza Unknown 11/19/2017 Administered Influenza Unknown 01/17/2018 Administered Influenza Unknown 12/19/2018 Administered Influenza Unknown 12/19/2020 Administered Influenza Unknown 01/05/2022 Administered Problems Problem Type SNOMED Code ICD Code Onset Dates Problem Status W/U Status Risk Notes Problem 478721994 Colon cancer screening (Z12.11) Active confirmed Problem Dysphagia (18106777) Dysphagia (R13.10) Active confirmed Problem 28730986 Abdominal pain, epigastric (R10.13) Active confirmed Problem 562310914 Gastroesophageal reflux disease without esophagitis (K21.9) Active confirmed Problem 01000777 Dysphagia, unspecified type (R13.10) Active confirmed Problem 361583276 Status post gastrostomy tube (G tube) placement, follow-up exam (Z09) Active confirmed Problem 616595915 Malfunction of gastrostomy tube (K94.23) Active confirmed Vital Signs Blood pressure diastolic 11 mm Hg 05/10/2024 Height 63.50 in 05/10/2024 Blood pressure systolic 111 mm Hg 05/10/2024 Weight 168 lbs 05/10/2024 BMI 29.29 kg/m2 05/10/2024 Encounters Encounter Location Date Provider Diagnosis [facility] [address] [place], [place] [id number] 06/06/2024 Benny Sanabria Jr Gastrostomy malfunction K94.23 and Dysphagia R13.10 [facility] [address] [place] [phone] 05/10/2024 Benny Sanabria Jr Malfunction of gastrostomy tube K94.23 ; Gastroesophageal reflux disease without esophagitis K21.9 and Dysphagia R13.10 [facility] [address] [place] [phone] 12/10/2024 Benny Sanabria Jr Assessments Encounter Date Diagnosis (ICD Code) Assessment Notes Treatment Notes Treatment Clinical Notes Section Notes 06/06/2024 Gastrostomy malfunction (ICD-10 - K94.23) 06/06/2024 Dysphagia (ICD-10 - R13.10) 05/10/2024 Gastroesophageal reflux disease without esophagitis (ICD-10 - K21.9) PEG tube insertion - discharge material was printed We discussed gastroesophageal reflux disease today. We discussed diet, lifestyle modifications, and weight management. She will continue pantoprazole. She understands risks and benefits of G-tube replacement and agrees to proceed. This will be arranged in minor surgery. 05/10/2024 Malfunction of gastrostomy tube (ICD-10 - K94.23) G-tube replacement tube be done in minor surgery. We discussed gastroesophageal reflux disease today. We discussed diet, lifestyle modifications, and weight management. She will continue pantoprazole. She understands risks and benefits of G-tube replacement and agrees to proceed. This will be arranged in minor surgery. 05/10/2024 Dysphagia (ICD-10 - R13.10) We discussed gastroesophageal reflux disease today. We discussed diet, lifestyle modifications, and weight management. She will continue pantoprazole. She understands risks and benefits of G-tube replacement and agrees to proceed. This will be arranged in minor surgery. Plan Of Treatment Pending Test Test Name Order Date XR GI SERIES 09/10/2015 Future Test Test Name Order Date COLONOSCOPY 03/31/2016 COLONOSCOPY 06/18/2021 Next Appt Details Provider Name:Benny Ekaterina carrillo , 12/24/2024 02:35:00 PM, [address], [address], [place], [address], Insurance Providers Payer Name Payer Address Payer Phone Subscriber Number Group Number Insured Name Patient Relationship to Insured Coverage Start Date Coverage End Date [facility] [address] Attn Claims ALEX Freire [id number] REGINA HAN Self - patient is the insured Medical (General) History Medical History History ICD Code paraganglioma gastritis/GERD asthma degenerative joint disease colonoscopy 07/21/21, tubular adenoma, sev en-year colon recall. 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 future surgery june 27 bilateral cater acts
--- OUTSIDE RECORDS SUMMARY | 2024-12-11 12:36 | XMS_ITS | Encounter Summary ---
Author Organization [employer] Address 75 [facility] 7t [place] [address] Care Team Providers Care Plant Pathology Teacher Name Role Phone Carolina Robbins Primary Care Provider [phone] Encounter Details Date Type Department Care Team (Late st Contact Info) Description 11/21/2024 Results Follow-Up [facility] MEDICINE [address] [place] [address] Carolina Robbins ANP [address] [place] [address] Vitamin B12, CBC auto differential, Hemoglobin A1c, TSH W/Reflex to FT4 Social History Tobacco Use Types Packs/Day Years [...] as of this encounter Miscellaneous Notes * Result Encounter Note - BEL Arcos - 11/21/2024 11:57 AM EDT Responded in separate note documented in this encounter Plan of Treatment Not on file documented as of this encounter Visit Diagnoses Not on filedocumented in this encounter Additional Health Concerns Assessment Noted Time PHQ-9 Depression Total Score: 7 02/06/20 24 1:32 PM EST documented as of this encounter Care Teams Plant Pathology Teacher Relationship Specialty Start Date End Date Carolina Robbins ANP [address] [place] [address] PCP - General Family Medicine 11/19/19 documented as of this encounter
--- OUTSIDE RECORDS SUMMARY | 2024-12-11 12:36 | XMS_ITS | Encounter Summary ---
Author Organization [employer] Address [address] [facility] [address] [place] [address] Care Team Providers Care Deadener Name Role Phone Carolina Robbins ANP Primary Care Provider [phone] Reason for Visit * Reason Onset Date Comments Med Refill 08/27/2022 Encounter Details Date Type Department Care Team ([facility] Contact Info) Description 08/27/2022 Telephone [facility] MEDICINE [address] [place] [address] Carolina Robbins ANP [address] [place] [address] Med Refill Social History Tobacco Use Types [...] currently inactive. Please sent to [facility] [address] [place] [address] [employer] [place] documented in this encounter Plan of Treatment Not on file documented as of this encounter Visit Diagnoses Not on filedocumented in this encounter Care Teams Deadener Relationship Specialty Start Date End Date Carolina Robbins ANP [address] [place] [address] PCP - General Family Medicine 11/19/19 documented as of this encounter
--- OUTSIDE RECORDS SUMMARY | 2024-12-11 12:36 | XMS_ITS | Encounter Summary ---
Author Organization [employer] Address 75 [facility] 7t [place] [address] Care Team Providers Care Geriatric Physical Therapist Name Role Phone Carolina Robbins Primary Care Provider [phone] Encounter Details Date Type Department Care Team ([facility] Contact Info) Description 12/11/2024 Orders Only GENERIC EXTERNAL DATA DEPARTMENT Provider, Generic External Data Social History Tobacco Use Types Packs/Day Years [...] Procedure Name Priority Date/Time Associated Diagnosis Comments LACTIC ACID Routine 12/11/2024 10:38 AM EDT CBC WITH AUTO DIFFERENTIAL Routine 12/11/2024 10:37 AM EDT documented in this encounter Results * Lactic Acid (12/11/2024 10:38 AM EDT) Pathologist [facility] Lactic Acid 1.8 0.5 - 2.0 mmol/L [facility] 12/11/2024 10:3 8 AM EDT 12/11/2024 10:51 AM EDT us Generic External Data Provider LAB BLOOD ORDERAB LES Final Result [facility] [address] [place] [phone] * (ABNORMAL) CBC auto differential (12/11/2024 10:37 AM EDT) White Blood Count 7.2 4.8 - 10.8 X10*3/uL [facility] Red Blood Count 4.20 4.20 - 5.50 X10*6/uL [facility] Hemoglobin 13.7 12.0 - 16.0 g/dl [facility] Hematocrit 41.0 37.0 - 47.0 % [facility] Mean Corpuscular Volume 97.6 80.0 - 98.0 fL [facility] Mean Corpuscular Hemoglobin 32.6 27.0 - 33.0 pg [facility] Mean Corpuscular HGB Conc 33.4 31.0 - 35.0 g/dl [facility] Red Cell Distribution Width 12.8 11.0 - 16.0 % [facility] Platelet Count 261 160 - 400 X10*3/uL [facility] Mean Platelet Volume 9.0(L) 9.4 - 12.3 fL [facility] Neutrophils Percent Auto 63.2 45 - 73 % [facility] Imm Gran Pct Auto 0.1 0.0 - 0.4 % [facility] Lymphocytes Percent Auto 23.8 20 - 40 % [facility] Monocytes Percent Auto 11.1(H) 2 - 11 % [facility] Eosinophils Percent Auto 1.5 0 - 4 % [facility] Basophils Percent Auto 0.3 0 - 2 % [facility] NRBC Pct Auto 0.0 0.0 - 0.2 /100WBC [facility] Neutrophils Absolute Auto 4.6 2.0 - 8.3 x10*3/uL [facility] Imm Gran Abs Auto 0.01 0.00 - 0.03 X10*3/uL [facility] Lymphocytes Absolute Auto 1.7 1.2 - 4.9 X10*3/uL [facility] Monocytes Absolute Auto 0.8 0.1 - 1.2 X10*3/uL [facility] Eosinophils Absolute Auto 0.1 0.0 - 0.4 X10*3/uL [facility] Basophils Absolute Auto 0.0 0.0 - 0.2 X10*3/uL [facility] NRBC Abs Auto 0.000 0.0 - 0.012 X10*3/uL [facility] 12/11/2024 10:3 7 AM EDT 12/11/2024 10:51 AM EDT us Generic External Data Provider LAB BLOOD ORDERAB LES Final Result [facility] [address] [place] [phone] documented in this encounter Visit Diagnoses Not on filedocumented in this encounter Additional Health Concerns Assessment Noted Time PHQ-9 Depression Total Score: 7 02/06/20 24 1:32 PM EST documented as of this encounter Care Teams Geriatric Physical Therapist Relationship Specialty Start Date End Date Carolina Robbins ANP [address] [place] [address] PCP - General Family Medicine 11/19/19 documented as of this encounter
--- OUTSIDE RECORDS SUMMARY | 2024-12-11 12:36 | XMS_ITS | Encounter Summary ---
Author Organization [employer] Address 75 [facility] 7t [place] [address] Care Team Providers Care Recording Studio Intern Name Role Phone Carolina Robbins Primary Care Provider [phone] Encounter Details Date Type Department Care Team (Late st Contact Info) Description 02/04/2023 Abstract [facility] MEDICINE [address] [place] [address] Cyndie Rojas Social History Tobacco Use Types [...] is your housing situation today? I have tonylolita sanford 01/05/[address] you [...] documented as of this encounter Care Teams Recording Studio Intern Relationship Specialty Start Date End Date Carolina Robbins ANP [address] [place] [phone] PCP - General Family Medicine 11/19/19 documented as of this encounter
--- OUTSIDE RECORDS SUMMARY | 2024-12-11 12:37 | XMS_ITS | Clinical Summary ---
Author Organization [employer] Address 75 [facility] 7t [place] [address] Care Team Providers Care Computer Installation Engineer Name Role Phone Carolina Robbins Primary Care Provider [phone] Allergies Active Allergy Reactions Criticality Noted Date [...] 1 x10yd) tapeIndications :Gastrostomy tube in place ([facility]) Use daily as needed for PEG tube maintenance 1 each 3 04/07/19 24 Active Blood Pressure kitIndications: Elevated blood [...] (Symbicort) 160-4.5 MCG/ACT inhalerIndicati ons:Chronic obstructive asthma ([facility]) Inhale 2 puffs in the morning and [...] tabletIndicatio ns: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 60 tablet 5 09/26/19 25 Active Umeclidinium [place] 62.5 MCG/ACT aerosol powderIndicatio ns:Chronic obstructive asthma (CMS/[facility]) Inhale 1 Act (62.5 mcg) in the morning. INHALE 1 PUFF BY MOUTH ONCE DAILY. 30 each 5 11/10/19 25 Active mometasone (Elocon) 0.1 % creamIndication s:Rash APPLY TOPICALLY EVERY DAY IF NEEDED FOR RASH OR ITCHING 45 g 1 12/06/19 25 Active mometasone (Elocon) 0.1 % creamIndication s:Rash APPLY TOPICALLY EVERY DAY IF NEEDED FOR RASH OR ITCHING 45 g 1 11/16/19 24 2024 Discontinued(R eorder (will not trigger notification [...] (04/02/2022): Added automatically from request for surgery [id number] Last Assessment & Plan: Follow-up visit for [...] cord cymetra augmentation by Dr. Sierra at [facility] 06/26/08- Modified Barium Swallow with aspiration. no [...] Encounters Date Type Department Care Team Description 12/11/2024 Orders Only GENERIC EXTERNAL DATA DEPARTMENT Provider, Generic External Data 12/05/2024 Refill [facility] [address] [place], [place] [phone] Carolina Robbins ANP Rash 11/21/2024 Results Follow-Up [address] [address] Carolina Robbins ANP Vitamin B12, CBC auto differential, Hemoglobin A1c, TSH W/Reflex to FT4 11/21/2024 Results Follow-Up [address] [address] Carolina Robbins ANP Lipid Panel, Standard, Iron And Total Iron Binding Capacity 11/20/2024 2:00 PM EDT Office Visit [address] [address] Carolina Robbins ANP Memory loss (Primary Dx); Gastrostomy tube in place ([facility]); Chronic obstructive asthma (CMS/[facility]); Insomnia, unspecified type; Latex allergy; Healthcare maintenance; Easy bruising; Left leg swelling; Pressure urticaria 11/20/2024 Travel 11/13/2024 Patient Outreach [address] [address] Carolina Robbins ANP Pre-visit Planning (SDOH screening completed on 05/04/2024) 11/09/2024 Refill [facility] [address] [place] [address] Carolina Robbins ANP Chronic obstructive asthma (CMS/HCC) 09/24/[address] [address] Carolina Robbins ANP Med Refill 09/24/2024 Refill [facility] [address] [place] [address] Carolina Robbins ANP 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[facility]) 09/20/2024 Telephone [facility] MED[facility] [address] [place] [address] Carolina Robbins ANP Durable Medical Equipment from Last 3 Months Immunizations Immunization Administration [...] Colonoscopy 07/21/2024 07/21/2021 Colorectal Cancer Screening 07/21/2024 Influenza Vaccine (#1) 2024 , 01/05/2023, 03/24/2022, Additional history exists Depression Screening 02/05/2025 02/06/2024, 02/06/20 24 SDOH Screening 05/04/2025 05/04/2024 Diabetes: Hemoglobin A1C 11/20/2025 11/20/2024, 09/19 Tobacco Screening 11/20/2025 11/20/2024 Lipid Panel 11/20/2029 11/20/2024, 10/08/2019 DTaP/Tdap/Td Vaccines (4 - Td or Tdap) [...] AUTO DIFFERENTIAL Routine 12/11/2024 10:37 AM EDT IRON AND TOTAL IRON BINDING CAPACITY Routine 11/20/2024 3:44 PM EDT Easy bruising LIPID PANEL, STANDARD Routine 11/20/2024 3:44 PM EDT Healthcare maintenance TSH W/REFLEX TO FT4 Routine 11/20/2024 3 :44 PM EDT Memory loss HEMOGLOBIN A1C Routine 11/20/2024 3:44 PM EDT Memory loss RPR (MONITOR) W/REFL TITER Routine 11/20/2024 3:44 PM EDT Memory loss CBC WITH AUTO DIFFERENTIAL Routine 11/20/2024 3:44 PM EDT Memory loss VITAMIN B12 Routine 11/20/2024 3:44 PM EDT Memory loss HM COLONOSCOPY Routine 07/21/2021 9:39 AM EDT from Last 3 Months or Most Recently Relevant to Health Maintenance Results * Lactic Acid (12/11/2024 10:38 AM EDT) Lactic Acid 1.8 0.5 - 2.0 mmol/L [facility] 12/11/2024 10:3 8 AM EDT 12/11/2024 10:51 AM EDT us Generic External Data Provider LAB BLOOD ORDERAB LES Final Result [facility] [address] [place] [phone] * (ABNORMAL) CBC auto differential (12/11/2024 10:37 AM EDT) Only the most recent of2 resultswithin the time period is included. White Blood Count 7.2 4.8 - 10.8 X10*3/uL [facility] Red Blood Count 4.20 4.20 - 5.50 X10*6/uL [facility] Hemoglobin 13.7 12.0 - 16.0 g/dl [facility] Hematocrit 41.0 37.0 - 47.0 % [facility] Mean Corpuscular Volume 97.6 80.0 - 98.0 fL [facility] Mean Corpuscular Hemoglobin 32.6 27.0 - 33.0 pg [facility] Mean Corpuscular HGB Conc 33.4 31.0 - 35.0 g/dl [facility] Red Cell Distribution Width 12.8 11.0 - 16.0 % [facility] Platelet Count 261 160 - 400 X10*3/uL [facility] Mean Platelet Volume 9.0(L) 9.4 - 12.3 fL [facility] Neutrophils Percent Auto 63.2 45 - 73 % [facility] Imm Gran Pct Auto 0.1 0.0 - 0.4 % [facility] Lymphocytes Percent Auto 23.8 20 - 40 % [facility] Monocytes Percent Auto 11.1(H) 2 - 11 % [facility] Eosinophils Percent Auto 1.5 0 - 4 % [facility] Basophils Percent Auto 0.3 0 - 2 % [facility] NRBC Pct Auto 0.0 0.0 - 0.2 /100WBC [facility] Neutrophils Absolute Auto 4.6 2.0 - 8.3 x10*3/uL [facility] Imm Gran Abs Auto 0.01 0.00 - 0.03 X10*3/uL [facility] Lymphocytes Absolute Auto 1.7 1.2 - 4.9 X10*3/uL [facility] Monocytes Absolute Auto 0.8 0.1 - 1.2 X10*3/uL [facility] Eosinophils Absolute Auto 0.1 0.0 - 0.4 X10*3/uL [facility] Basophils Absolute Auto 0.0 0.0 - 0.2 X10*3/uL [facility] NRBC Abs Auto 0.000 0.0 - 0.012 X10*3/uL [facility] 12/11/2024 10:3 7 AM EDT 12/11/2024 10:51 AM EDT Generic External Data Provider LAB BLOOD ORDERAB LES Final Result Performing Organization Address [facility]/ZIP Co de Phone Number [facility] [address] [place] [phone] * TSH W/Reflex to FT4 (11/20/2024 3:44 PM EDT) TSH reflex Free T4 1.52 0.32 - 4.0 uIU/mL [facility] Blood Venous blood specimen / Unknown 11/20/2024 3:44 PM EDT 11/20/2024 5:37 PM EDT Carolina STAPLES LAB BLOOD ORDERABLES Final Resul t Performing Organization Address [facility] Co de Phone Number [facility] [address] [place] [phone] * Iron And Total Iron Binding Capacity (11/20/2024 3:44 PM EDT) Iron 65 30 - 160 mcg/dL [facility] Total Iron Binding Capacity 276 228 - 428 mcg/dL [facility] Percent Iron Saturation 24 15 - 50 % [facility] Unsaturated Iron Binding 211 ug/dL [facility] Blood Venous blood specimen / Unknown 11/20/2024 3:44 PM EDT 11/20/2024 5:37 PM EDT [facility] ANP LAB BLOOD ORDERABLES Final Resul t Performing Organization Address [facility] Co de Phone Number [facility] [address] [place] [phone] * RPR (Monitor) with Reflex to??Titer (11/20/2024 3:44 PM EDT) RPR (Monitor) w/Refl Titer NON-REACTI VE NON-REACT KEEGAN [facility] Comment:THIS TEST WAS PERFOR MED AT:[facility] [place] [phone] DHALIWAL MD Rapid Plasma Reagin Ab Titer TNP [facility] Blood Venous blood specimen / Unknown 11/20/2024 3:44 PM EDT 11/20/2024 5:37 PM EDT Carolina Robbins [facility] LAB BLOOD ORDERABLES Final Resul t Performing Organization Address [facility] de Phone Number [facility] [address] [place] [phone] * Hemoglobin A1c (11/20/2024 3:44 PM EDT) Hemoglobin A1c 5.7 <6.0 % [facility] Comment:Hemoglobin A1C Refer ence Range Adults: 4.8 - 6.0 % Non diabetic: < 6.0 % Goal: < 7.0 %Additional Action Suggested: > 8.0 %Note: Hemoglobin A1c results are invalid for patients with abnormal amounts of HbF. Blood transfusions may impact the HbA1c concentration in the patient sample. Estimated Average Glucose 117 mg/dL [facility] Comment:eAG = Estimated ave rage glucose which is %A1C expressed asaverage glucose, using the formula of the G7E-LjxzlepAnykgga Glucose study (ADAG), Diabetes Care, Vol.31,#8,Oct. 2007 Blood Venous blood specimen / Unknown 11/20/2024 3:44 PM EDT 11/20/2024 5:37 PM EDT Carolina Robbins ANP LAB BLOOD ORDERABLES Final Resul t Performing Organization Address City/[facility]/ZIP Co de Phone Number [facility] [address] [place] [phone] * (ABNORMAL) Vitamin B12 (11/20/2024 3:44 PM EDT) Vitamin B12 1,044(H) 200 - 900 pg/mL [facility] Comment:NORMAL 200-900 PG/ML INDETERMINATE 160-199 PG/ML DEFICIENT < 160 PG/ML Blood Venous blood specimen / Unknown 11/20/2024 3:44 PM EDT 11/20/2024 5:37 PM EDT Carolina Robbins ANP LAB BLOOD ORDERABLES Final Resul t Performing Organization Address [facility] Co de Phone Number [facility] [address] [place] [phone] * (ABNORMAL) Lipid Panel, Standard (11/20/2024 3:44 PM EDT) Triglycerides 114 <150 mg/dL [facility] Comment:Desirable Triglyceri de: less than 150 mg/dLBorderline High Triglyceride 150-199 mg/dLHigh Triglyceride: 200-499 mg/dLVery High Triglyceride: greater than or equal to 5OO mg/dL Cholesterol 202(H) <200 mg/dL [facility] Comment:Desirable Cholestero l: less than 200 mg/dLBorderline High Cholesterol: 200-239 mg/dLHigh Cholesterol: greater than 239 mg/dL LDL Cholesterol Calculated 125(H) <100 mg/dL [facility] Comment:Desirable LDL: less than 100 mg/dLNear Optimal/Above Optimal LDL: 110- 129 mg/dLBorderline High LDL: 130-159 mg/dLHigh LDL: 160-189 mg/dLVery High LDL: greater than or equal to 190 mg/dL HDL Cholesterol 55 >40 mg/dL [facility] Comment:Desirable HDL: great er than 40 mg/dL Note: This HDL assay may give artificially low results in patients with liver disease. Blood Venous blood specimen / Unknown 11/20/2024 3:44 PM EDT 11/20/2024 5:37 PM EDT Carolina STAPLES LAB BLOOD ORDERABLES Final Resul t [facility] [address] [place] [phone] * Colonoscopy (07/21/2021 9:39 AM EDT) Historical Provider HEALTH MAINTENANCE Final Result from Last 3 Months or Most Recently Relevant to Health Maintenance Insurance [employer] [id number] Care Teams Computer Installation Engineer Relationship Specialty Start Date End Date Carolina Robbins ANP [address] [place] [address] PCP - General Family Medicine 11/19/19
--- OUTSIDE RECORDS SUMMARY | 2024-12-11 12:37 | XMS_ITS | Encounter Summary ---
Author Organization [employer] Address [address] [facility] 7t [place] [address] Care Team Providers Care Business Banking Representative Name Role Phone Carolina Robbins Primary Care Provider [phone] Encounter Details Date Type Department Care Team (Late st Contact Info) Description 07/19/2023 Orders Only [facility] MEDICINE [address] [place] [address] ProviderKelsey MD Social History Tobacco Use Types Packs/Day Years [...] your housing situation today? I have tony juvenal 01/05/[address] you li [...] documented as of this encounter Care Teams Business Banking Representative Relationship Specialty Start Date End Date Carolina Robbins ANP [address] [place] [address] PCP - General Family Medicine 11/19/19 documented as of this encounter
--- OUTSIDE RECORDS SUMMARY | 2024-12-11 12:37 | XMS_ITS | Encounter Summary ---
Author Organization [employer] Address [address] [facility] 7t [place] [address] Care Team Providers Care Senior Media Planner Name Role Phone Carolina Robbins ANP Primary Care Provider [phone] Reason for Visit * Reason Onset Date Comments FYI 05/30/2023 Encounter Details Date Type Department Care Team ([facility] Contact Info) Description 05/30/2023 Telephone [facility] MEDICINE [address] [place] [address] Carolina Robbins ANP [address] [place] [address] FYI Social History Tobacco Use Types Packs/Day Years [...] - 05/30/2023 11:07 AM EDT Tc from [employer] with [employer] calling to advise provider Wound care Evaluation [...] documented as of this encounter Care Teams Senior Media Planner Relationship Specialty Start Date End Date Carolina Robbins ANP [address] [place] [phone] PCP - General Family Medicine 11/19/19 documented as of this encounter
--- OUTSIDE RECORDS SUMMARY | 2024-12-11 12:37 | XMS_ITS | Encounter Summary ---
Author Organization [employer] Address 75 [facility] 7t [place] [address] Care Team Providers Care Population Health Coach Name Role Phone Carolina Robbins Primary Care Provider [phone] Encounter Details Date Type Department Care Team (Late st Contact Info) Description 07/12/2023 Abstract [facility] MEDICINE [address] [place] [address] Carolina Robbins ANP [address] [place] [address] Social History Tobacco Use Types Packs/Day Years [...] documented as of this encounter Care Teams Population Health Coach Relationship Specialty Start Date End Date Carolina Robbins ANP [address] [place] [address] PCP - General Family Medicine 11/19/19 documented as of this encounter
--- OUTSIDE RECORDS SUMMARY | 2024-12-11 12:37 | XMS_ITS | Encounter Summary ---
Author Organization [employer] Address 75 [facility] [address]t [place] [address] Care Team Providers Care Radiologic Electronic Specialist Name Role Phone Carolina Robbins Primary Care Provider [phone] Encounter Details Date Type Department Care Team (Late st Contact Info) Description 07/12/2023 Abstract [facility] MEDICINE [address] [place] [address] Carolina Robbins ANP [address] [place] [address] Social History Tobacco Use Types Packs/Day Years [...] documented as of this encounter Care Teams Radiologic Electronic Specialist Relationship Specialty Start Date End Date Carolina Robbins ANP [address] [place] [address] PCP - General Family Medicine 11/19/19 documented as of this encounter
--- OUTSIDE RECORDS SUMMARY | 2024-12-11 12:37 | XMS_ITS | Encounter Summary ---
Author Organization [employer] Address [address] [facility] [address]t h Floor [place] [id number] Care Team Providers Care Flexographic Press Set Up Operator Name Role Phone Carolina Robbins ANP Primary Care Provider [phone] Reason for Visit * Reason Onset Date Comments Med Refill 09/24/2024 Encounter Details Date Type Department Care Team ([facility] Contact Info) Description 09/24/[address] [facility] MEDICINE [address] [place] [address] Carolina Robbins ANP [address] [place] [address] Med Refill Social History Tobacco Use Types [...] encounter Miscellaneous Notes * Telephone Encounter - Letty Hale LPN - 09/24/2024 1:55 PM EDT Medication pended to provider. * Telephone Encounter - Paul Mascorro - 09/24/2024 1:42 PM EDT TC from pt requesting medication refill. Medications needing refill : Calcium Carb-Cholecalciferol (Calcium + Vitamin D3) 600-10 MG-MCG tablet To be sent to: [facility] [address] [place] [address] documented in this encounter Plan of Treatment Not on file documented as of this encounter Visit Diagnoses Not on filedocumented in this encounter Additional Health Concerns Assessment Noted Time PHQ-9 Depression Total Score: 7 02/06/20 24 1:32 PM EST documented as of this encounter Care Teams Flexographic Press Set Up Operator Relationship Specialty Start Date End Date Carolina Robbins ANP [address] [place] [address] PCP - General Family Medicine 11/19/19 documented as of this encounter
[2024-12-11 13:16] LABS: Alanine Aminotransferase 16 U/L (0-31); Albumin Level 3.9 g/dL (3.5-5.0); Alkaline Phosphatase 83 U/L (39-117); Anion Gap 10 (12-20); Aspartate Amino Transferase 22 U/L (5-31); Blood Urea Nitrogen 9 mg/dL (9-16); Calcium 9.5 mg/dL (8.4-10.2); Carbon Dioxide 31 mmol/L (22-29); Chloride 104 mmol/L (96-108); Creatinine Clr Calc Pharmacy 81.0; Estimated Glomerular Filt Rate > 60; Lipase 29 U/L (8-78); Magnesium 2.1 mg/dL (1.6-2.6); Potassium 5.1 mmol/L (3.3-5.1); Sodium 140 mmol/L (135-145); Total Protein 7.1 g/dL (6.5-8.0)
[2024-12-11] MEDS: iohexoL 350 MG/ML 100 ML INFUS..BTL IV (13:26)
[2024-12-11 13:31] LABS: Procalcitonin 0.03 ng/mL
--- NOTE | 2024-12-11 14:56 | P.HPHOSP_ITS ---
History of Present Illness Date of Service: 12/11/24 Chief Complaint: Shoulder pain 74-year-old female presenting to the ER with pain and redness the G-tube site. She reported that she felt a lump above the area. She has had multiple episodes of her G-tube getting dislodged. She has been unable to flush it for at least 24 hours so she has not been able to take any liquids. Denied any fever, chills, nausea, vomiting, diarrhea. Abdominal and pelvic CT showed G-tube retraction into abdominal wall and in the stomach, no additional findings. All of her labs are within acceptable limits. She was seen by General surgery and will need to be seen by Gastroenterology. Celestin catheter was placed in the meantime to G-tube site. She will be admitted for further management and treatment of G-tube site infection and replacement. Review of Systems 2 Review of Systems: Denies any recent fever chills or decrease in appetite respiratory denies any shortness of breath or cough cardiovascular denied chest pain gastrointestinal denies any dysphagia abdominal pain nausea vomiting or diarrhea genitourinary denies any dysuria frequency or hematuria musculoskeletal denies any joint pain or swelling neuropsych denies any weakness or seizures all other systems reviewed are negative PMFSH Medical History Shortness of breath Chest pain History of palpitations Hx of cataract Urinary incontinence Dysphagia Degenerative joint disease Asthma GERD (gastroesophageal reflux disease) Gastritis Paraganglioma Feeding by G-tube Family History Father No problems noted. Mother No problems noted. Surgical History Hx of cataract extraction Hx of colonoscopy H/O neck surgery H/O section History of throat surgery Social History Are you a primary senior caregiver to a significant other at home: No Do you presently have visiting nurse or other home services: Yes ([employer] 2 x week) Alcohol intake: never Patient Tobacco Use Status: Never used Tobacco Smoked in Last 30 Days: No Use of substances other than those prescribed or required for medical reasons: No Advance Directives: Yes Advance Directives Information Provided: No Advance Directives on File: No Do you have a plan to hurt others: No Plan Meds Allergies Allergy/AdvReac Type Severity Reaction Status Date / Time latex (LATEX) Allergy Unknown RASH Verified 12/11/24 09:58 Active Medications: Current Medications Lactated Ringer's (Lr) 1,000 mls @ 80 mls/hr IVCONT .[id number] BECKY Home Medications ?Medication ?Instructions ?Recorded ?Confirmed ?Last Taken ?Type calcium 600 mg (as 1 tab PO BID 04/28/22 Unknown History carbonate)-vitamin D3 10 mcg (400 unit) tablet nortriptyline 50 mg capsule 50 mg PO BEDTIME 04/28/22 04/28/22 Unknown History fluticasone propionate 50 spray intranasal 04/29/23 U nknown History mcg/actuation nasal spray,suspension amlodipine 5 mg tablet 5 mg PO DAILY 12/11/24 Unkn own History umeclidinium 62.5 mcg/actuation 1 inh inhalation DAILY 12/11/24 Unknown History blister powder for inhalation (Incruse Ellipta) Physical Exam 2 Vital Signs and Narrative: Vital Signs: Last Vital Signs Temp 98.1 F 12/11/24 14:42 Pulse 82 12/11/24 14:42 Resp 16 12/11/24 14:42 BP 133/75 12/11/24 14:42 Pulse Ox 93 12/11/24 14:42 O2 Del Method Room Air 12/11/24 14:42 BMI result Body Mass Index 31.5 Appearing in no acute distress head is normocephalic atraumatic eyes pupils are PERRLA sclera is anicteric mouth throat mucous membranes are intact and moist neck is supple no lymphadenopathy, no JVD noted lung sounds are clear to auscultation heart regular rate rhythm, clear S1, S2 positive bowel sounds, abdomen is soft, nontender neuro patient is alert x3, no focal deficits Redness and excoriation above G-tube site Results Labs 12/11/24 10:37 12/11/24 12:50 Labs: Laboratory Results - last 24 hr 12/11/24 12/11/24 12/11/24 10:37 10:38 12:50 MCV 97.6 MCH 32.6 MCHC 33.4 RDW 12.8 Plt Count 261 MPV 9.0 L Immature Gran % (Auto) 0.1 Neut % (Auto) 63.2 Lymph % (Auto) 23.8 [facility] % (Auto) 11.1 H Eos % (Auto) 1.5 Baso % (Auto) 0.3 Lymph # (Auto) 1.7 [facility] # (Auto) 0.8 Eos # (Auto) 0.1 Baso # (Auto) 0.0 Abs Immat Gran (auto) 0.01 Absolute Neuts (auto) 4.6 Absolute Nucleated RBC 0.000 Nucleated RBC % (auto) 0.0 Anion Gap 10 L Estim Creat Clear Calc 81.0 Estimated GFR > 60 Random Glucose 103 Lactic Acid 1.8 Calcium 9.5 Magnesium 2.1 Total Bilirubin 0.4 Direct Bilirubin 0.2 AST 22 ALT 16 Alkaline Phosphatase 83 C-Reactive Protein 4.61 H Total Protein 7.1 Albumin 3.9 Lipase 29 Procalcitonin 0.03 Imaging Radiologist's Impressions: Impressions Abdomen/Pelvis CT 12/11/24 13:23 IMPRESSION: 1. The G tube has retracted into the abdominal wall as detailed. Both the tip and balloon are superficial to the rectus sheath. The stomach remains tethered to the anterior abdominal wall at the access site. 2. No additional acute findings in the abdomen or pelvis. 3. Ancillary findings as discussed in the body of the report. Electronically signed by: Primo Dolan MD 12/11/2024 01:49 PM EDT Assessment and Plan (1) Complication of feeding tube: Status: Acute Plan 74 year old women admitted with abd wall cellulitis and gtube dislodgement Abd wall excoriation, no cellulitis IV Zosyn for now wound care nurse consult Zinc oxide b.i.d. with gauze Monitor closely Gtube dependance Dislodged Replaced with Celestin in the ED for now IV fluids for now GI consult HTN continue amlodipine meds crushed and placed through gtube DVT prophylaxis with Heparin Full code Medication reconciliation pending Quality Stroke Does the patient have a stroke diagnosis?: No VTE Prior VTE?: No VTE Risk Level:: Medical - moderate - high VTE Device Contraindication: Treatment Not Indicated VTE Drug Contraindication: N/A - Med Ordered
--- NOTE | 2024-12-11 16:18 | HO.NURTONUR ---
Addendum entered by Patricia Espitia RN 12/11/24 19:54: Admitting patient to room 359. Patient is an alert and oriented 74-year-old female presenting to the ER with pain and redness the G-tube site. She reported that she felt a lump above the area. She has had multiple episodes of her G-tube getting dislodged. She has been unable to flush it for at least 24 hours so she has not been able to take any liquids. Abdominal and pelvic CT showed G-tube retraction into abdominal wall and in the stomach, no additional findings. She was seen by General surgery and will need to be seen by Gastroenterology. Chowdary catheter was placed in the meantime to G-tube site. She will be admitted for further management and treatment of G-tube site infection and replacement. G tube site is red w/ purulent drainage, chowdary catheter currently in place at g tube site. patient was medicated for nausea, states that nausea was better but is now returning after getting up and ambulating to the bathroom. patient ambulates independently w/ a steady gait. 20g IV to left AC w/ D5LR running at 80ml/hr. Original Note: Pt here w/ c/o unable to use g-tube shes had for the past 18 years and pain and redness at site x 24 hours. Site around gtube reddned and painful. CT shows gtube was not in the right place and into the abd wall. ED provider removed old chowdary for temporary placement. Pt need IR for placement. Tx'd w/ abx and pain meds.
--- NOTE | 2024-12-11 17:07 | PHA.MEDREC ---
Addendum entered by Reece Anderson [facility] 12/11/24 17:20: Med rec reviewed Original Note: Pharmacy Consult ? Medication Reconciliation Pharmacy has completed the medication reconciliation. Spoke with pt, utilizing steamblaster and she confirmed her medications. Pt states she doesn't re-call starting/taking Lansoprazole.
[2024-12-11] MEDS: 0.9 % Sodium Chloride Flush 3 ML SYRINGE IVFLUSH (17:15)
--- NOTE | 2024-12-11 17:23 | PC.NURSE ---
Addendum entered by Zahra Aguilera RN 12/11/24 17:24: Patient is a 74-year-old female presenting to the ER with pain and redness the G-tube site. She reported that she felt a lump above the area. She has had multiple episodes of her G-tube getting dislodged. She has been unable to flush it for at least 24 hours so she has not been able to take any liquids. Denied any fever, chills, nausea, vomiting, diarrhea. Abdominal and pelvic CT showed G-tube retraction into abdominal wall and in the stomach, no additional findings. All of her labs are within acceptable limits. She was seen by General surgery and will need to be seen by Gastroenterology. Celestin catheter was placed in the meantime to G-tube site. She will be admitted for further management and treatment of G-tube site infection and replacement. Patient is alert and oriented. Lungs clear bilat. Respirations even and non-labored. Abdomen soft with positive bowel sounds. Medicated for nausea. Tenderness noted at the g-tube site. Area reddened, swollen and draining a small amount of bliss drainage. Positive pedal pulses with no edema noted. Original Note: Medical History Shortness of breath Chest pain History of palpitations Hx of cataract Urinary incontinence Dysphagia Degenerative joint disease Asthma GERD (gastroesophageal reflux disease) Gastritis Paraganglioma Feeding by G-t
[2024-12-11] MEDS: Dextrose 5 % and Lactated Ring 1,000 ML 80 ML IVCONT (17:43)
--- NOTE | 2024-12-11 21:45 | PC.NURSE ---
g tube site cleansed, ointment applied per order and new dressing applied.
[2024-12-12 04:00] VITALS: BP 125/59; PULSE 79; RESP 18; TEMP 36.3; O2SAT 95
[2024-12-12 06:07] LABS: Hematocrit 36.0 % (37.0-47.0); Hemoglobin 11.8 g/dl (12.0-16.0); Mean Corpuscular HGB Conc 32.8 g/dl (31.0-35.0); Mean Corpuscular Hemoglobin 32.1 pg (27.0-33.0); Mean Corpuscular Volume 97.8 fL (80.0-98.0); NRBC Abs Auto 0.000 X10*3/uL (0.0-0.012); NRBC Pct Auto 0.0 /100WBC (0.0-0.2); Platelet Count 234 X10*3/uL (160-400); Red Blood Count 3.68 X10*6/uL (4.20-5.50); White Blood Count 5.4 X10*3/uL (4.8-10.8)
[2024-12-12 06:15] LABS: Anion Gap 10 (12-20); Blood Urea Nitrogen 7 mg/dL (9-16); Calcium 8.8 mg/dL (8.4-10.2); Carbon Dioxide 29 mmol/L (22-29); Chloride 104 mmol/L (96-108); Creatinine Clr Calc Pharmacy 83.9; Estimated Glomerular Filt Rate > 60; Potassium 3.6 mmol/L (3.3-5.1); Sodium 139 mmol/L (135-145)
[2024-12-12] MEDS: Dextrose 5 % and Lactated Ring 1,000 ML 80 ML IVCONT ×2 (06:32→19:40)
[2024-12-12 08:00] VITALS: BP 133/77; PULSE 73; RESP 16; TEMP 36; O2SAT 94
--- NOTE | 2024-12-12 09:37 | HO.PM.IMPN ---
Subjective Subjective Date of Service: 12/12/24 Review of Systems Follow up gtube dislodgement f/c placed in ED for now Physical Exam Exam: Exam: Appearing in no acute distress lung sounds are clear to auscultation heart regular rate rhythm, clear S1, S2 positive bowel sounds, abdomen is soft, nontender neuro patient is alert x3, no focal deficits Gtube site with excoration Vital Signs: Vital Signs: Last Vital Signs Temp 96.8 F 12/12/24 08:00 Pulse 73 12/12/24 08:00 Resp 16 12/12/24 08:00 BP 133/77 12/12/24 08:00 Pulse Ox 94 12/12/24 08:00 O2 Del Method Room Air 12/12/24 08:00 BMI result Body Mass Index 31.5 Objective Data Active Medications Acetaminophen (Acetaminophen 325 Mg Tablet) 650 mg PO Q6H PRN PRN Reason: Pain, Mild 1-3,fever,headache Albuterol Sulfate (Albuterol Sulfate 90 Mcg 8 Gm Inhaler) 2 puff INHALE Q6H PRN PRN Reason: Shortness Of Breath Or Wheezing Amlodipine Besylate (Amlodipine Besylate 5 Mg Tablet) 5 mg PO DAILY [facility]; Protocol Calcium Carbonate (Calcium Carbonate 750 Mg Tab.Chew) 750 mg PO Q4H PRN PRN Reason: Heartburn Heparin Sodium (Porcine) (Heparin Sodium,Porcine 5,000 Unit/Ml Vial) 5,000 unit SUBCUT Q12H [facility] Last Admin: 12/12/24 02:37 Dose: 5,000 unit Documented By: ROSALIA Piperacillin Sod/Tazobactam (Sod 4.5 gm/ Sodium Chloride) 100 mls @ 200 mls/hr IV Q6H [facility] Last Admin: 12/12/24 09:23 Dose: 200 mls/hr Documented By: TANIA Dextrose/Lactated Ringer's (D5lr) 1,000 mls @ 80 mls/hr IVCONT .[id number] [facility] Last Admin: 12/12/24 06:32 Dose: 80 mls/hr Documented By: ROSALIA Magnesium Hydroxide (Milk Of Magnesia 30 Ml Oral.Susp) 30 ml PO DAILY PRN PRN Reason: Constipation Melatonin (Melatonin 3 Mg Tablet) 6 mg PO BEDTIME PRN PRN Reason: Insomnia Nortriptyline HCl (Nortriptyline Hcl 25 Mg Capsule) 50 mg PO BEDTIME [facility] Ondansetron HCl (Ondansetron Hcl 4 Mg/2 Ml Vial) 4 mg IVPUSH Q8H PRN PRN Reason: Nausea and Vomiting Last Admin: 12/12/24 09:23 Dose: 4 mg Documented By: TANIA Sodium Chloride (0.9 % Sodium Chloride Flush 3 Ml Syringe) 3 ml IVFLUSH QSHIFT [facility] Last Admin: 12/12/24 07:15 Dose: Not Given Documented By: TANIA Non-Admin Reason: IV Running Tiotropium [place] (Tiotropium [place] 2.5 Mcg 1 Puff/2.5 Mcg Mist.Inhal) 2 puff INHALE RDAILY [facility] Last Admin: 12/12/24 08:04 Dose: Not Given Documented By: WILFRED Non-Admin Reason: pharmacy called for med Zinc Oxide (Zinc Oxide 20% Ointment 28.35 Gm Tube) 1 appl TOPICAL BID [facility]; Protocol Last Admin: 12/11/24 21:21 Dose: 1 appl Documented By: DANIEL Labs 12/12/24 05:33 12/12/24 05:33 Labs: Laboratory Results - last 24 hr 12/11/24 12/11/24 12/11/24 10:37 10:38 12:50 MCV 97.6 MCH 32.6 MCHC 33.4 RDW 12.8 Plt Count 261 MPV 9.0 L Immature Gran % (Auto) 0.1 Neut % (Auto) 63.2 Lymph % (Auto) 23.8 [place] % (Auto) 11.1 H Eos % (Auto) 1.5 Baso % (Auto) 0.3 Lymph # (Auto) 1.7 [place] # (Auto) 0.8 Eos # (Auto) 0.1 Baso # (Auto) 0.0 Abs Immat Gran (auto) 0.01 Absolute Neuts (auto) 4.6 Absolute Nucleated RBC 0.000 Nucleated RBC % (auto) 0.0 Anion Gap 10 L Estim Creat Clear Calc 81.0 Estimated GFR > 60 Random Glucose 103 Lactic Acid 1.8 Calcium 9.5 Magnesium 2.1 Total Bilirubin 0.4 Direct Bilirubin 0.2 AST 22 ALT 16 Alkaline Phosphatase 83 C-Reactive Protein 4.61 H Total Protein 7.1 Albumin 3.9 Lipase 29 Procalcitonin 0.03 12/12/24 05:33 MCV 97.8 MCH 32.1 MCHC 32.8 RDW 12.7 Plt Count 234 MPV 9.0 L Immature Gran % (Auto) Neut % (Auto) Lymph % (Auto) [place] % (Auto) Eos % (Auto) Baso % (Auto) Lymph # (Auto) [place] # (Auto) Eos # (Auto) Baso # (Auto) Abs Immat Gran (auto) Absolute Neuts (auto) Absolute Nucleated RBC 0.000 Nucleated RBC % (auto) 0.0 Anion Gap 10 L Estim Creat Clear Calc 83.9 Estimated GFR > 60 Random Glucose 114 Lactic Acid Calcium 8.8 D Magnesium Total Bilirubin Direct Bilirubin AST ALT Alkaline Phosphatase C-Reactive Protein Total Protein Albumin Lipase Procalcitonin Assessment and Plan (1) Complication of feeding tube: Status: Acute Plan 74 year old women admitted with abd wall cellulitis and gtube dislodgement Abd wall excoriation, no cellulitis s/p zosyn wound care nurse consult Zinc oxide b.i.d. with gauze Monitor closely Gtube dependance Dislodged Replaced with Celestin in the ED for now IV fluids for now GI consult pending HTN continue amlodipine meds crushed and placed through gtube DVT prophylaxis with Heparin Full code Quality Stroke Does the patient have a stroke diagnosis?: No VTE Prior VTE?: No VTE Risk Level:: Medical - moderate - high VTE Device Contraindication: Treatment Not Indicated VTE Drug Contraindication: N/A - Med Ordered
--- NOTE | 2024-12-12 10:27 | MHC.CM.PN ---
IMM 12/12/24 DX Abdominal wall cellulitis. Patient lives with her spouse. She states that she does not require an AD. Life line She has TUBE WASHER 13 hours/week. The services are through [facility]. DME Tub bench + BR modifications. A referral has been sent to [facility] at the patients request. DP home with or without [facility]. Patients spouse will provide transportation home at discharge.
--- NOTE | 2024-12-12 11:24 | HO.WOUND ---
Wound Consult: Initial 74yr old?female admitted to [facility] on 12/11/24- See progress notes and H&P for detailed history.? Wound consult placed for G Tube Site.? Patient agreeable to assessment and photo documentation.? Patient reports significant improvement to site and surrounding tissue. Recommend continue with systemic treatment and topical zinc to site. Temporary tube in place. Awaiting GI Consult for tube change and assessment. GTube Site Etiology: ?Cellultits with MASD (Moisture Associated Skin Damage) Wound Bed: generalized redness and maceration improving after photo review Drainage / Odor: None noted Edges: ?well defined Carlee wound: ?Slight induration to superior portion of G Tube site, No Fluctuance and No Warmth noted Pain: reports improvement but still cleaner tube to touch Goals of Treatment: ? continue with systemic and topical treatment in place. Recommendations: G Tube Site - Gently Cleanse with saline moist soft gauze, pat dry. Apply Zinc oxide to G-tube skin breakdown b.i.d. and apply split gauze. Secure tube to abdomen to minimize tube movement. Re-consult wound care Nurse for wound deterioration or wound changes.
[2024-12-12 11:38] VITALS: BMI 31.5
--- NOTE | 2024-12-12 11:43 | MHC.CLN ---
PT WITH DISLODGED G-TUBE REVIEWED LABS DISCUSSED WITH KALANI AT THIS TIME IF TF NEEDED; RECOMMEND JEVITY 1.2 AT MAX GOAL RATE 50ML/HR WITH 240ML FREE WATER FLUSHES Q 8 HRS TO PROVIDE 1440KCALS (24KCALS/KG), 67G PROTEIN (1.1G/KG), 1688ML TOTAL FREE WATER FROM FORMULA AND FLUSHES (29ML/KG) MONITOR TOLERANCE AND LYTES FOLLOWING FOR DIET ADVANCEMENT SEE FULL ASSESSMENT
[2024-12-12 15:33] VITALS: BP 160/78; PULSE 78; RESP 16; TEMP 36.3; O2SAT 93
[2024-12-12 19:43] VITALS: BP 152/65; PULSE 76; RESP 18; TEMP 36.3; O2SAT 96
[2024-12-12] MEDS: 0.9 % Sodium Chloride Flush 3 ML SYRINGE IVFLUSH (21:31)
--- NOTE | 2024-12-13 03:10 | CONS_ITS ---
DATE OF SERVICE: 12/12/2024 REASON FOR CONSULTATION: G-tube malposition. HISTORY OF PRESENT ILLNESS: The patient is a pleasant 74-year-old woman, well known to me from prior evaluation. She has a history of previous surgery for paraganglioma and has required G-tube placement for nutrition. She presented to the emergency room with complaints of abdominal wall redness and discomfort and was evaluated and diagnosed with cellulitis. The G-tube was imaged by CT scanning and was found to be malpositioned. This was removed and a Celestin catheter was replaced for the G-tube. This was an 18-Bengali according to medical records. Since admission, the patient has done well. She has been treated with antibiotics and is currently without abdominal pain. PAST MEDICAL HISTORY: 1. Paraganglioma with surgery as above. 2. Degenerative joint disease. 3. Cataracts. 4. Palpitations. 5. Gastroesophageal reflux disease. CURRENT MEDICATIONS: Her current medication list is reviewed in the chart. ALLERGIES: LATEX. FAMILY HISTORY: This is reviewed with the patient and is noncontributory. SOCIAL HISTORY: There is no current tobacco, alcohol, or substance abuse. REVIEW OF SYSTEMS: SKIN: No pruritus. HEENT: Negative. CARDIOPULMONARY: No shortness of breath or chest pain. GASTROINTESTINAL: As above. GENITOURINARY: Negative. NEUROPSYCHIATRIC: Negative. PHYSICAL EXAMINATION: GENERAL: Shows a pleasant female, in no acute distress. VITAL SIGNS: Reviewed in the electronic medical record and are stable. SKIN: Anicteric. HEENT: Shows no scleral icterus. NECK: Without lymphadenopathy or thyromegaly. LUNGS: Clear. HEART: Shows a regular rate and rhythm. S1, S2. No murmur. ABDOMEN: Soft. The G-tube site is intact and there is some mild erythema at the site. EXTREMITIES: Without edema. LABORATORY DATA AND IMAGING STUDIES: Reviewed. IMPRESSION: G-tube malposition. I have recommended that she continue to use the feeding tube as directed. This can be replaced with a standard replacement tube when the inflammation at the G-tube site is improved. I discussed this with her today. She understands the procedure of replacement of the G-tube. In the interim, I would continue her present medications and agree with treating her with antibiotics as you are doing. Thanks for asking me to see her. I will follow her in the hospital with you. MD NAN Clifford/BECKY / [phone]
[2024-12-13 03:16] VITALS: BP 117/60; PULSE 70; RESP 18; TEMP 36.7; O2SAT 93
[2024-12-13 07:29] VITALS: BP 139/65; PULSE 83; RESP 14; TEMP 36.7; O2SAT 92
[2024-12-13 07:53] VITALS: PULSE 83; RESP 18; O2SAT 92
[2024-12-13] MEDS: Tiotropium Bromide 2.5 mcg 1 PUFF/2.5 MCG MIST.INHAL 2 PUFF INHALE (07:53)
--- NOTE | 2024-12-13 09:56 | P.PNGI_ITS ---
Subjective Subjective Date of Service: 12/13/24 Interval History: doing well no pain Critical Care Time (minutes): 0 Physical Exam 2 Vital Signs: Vital Signs: Last Vital Signs Temp 98.1 F 12/13/24 07:29 Pulse 83 12/13/24 07:53 Resp 18 12/13/24 07:53 BP 139/65 12/13/24 07:29 Pulse Ox 92 12/13/24 07:29 O2 Del Method Room Air 12/13/24 07:29 BMI result Body Mass Index 31.5 GI: Other: redness at gtube site is improved Objective Data Labs 12/12/24 05:33 12/12/24 05:33 Microbiology Microbiology Results: Microbiology 12/11/24 10:37 Blood - Venous Blood Culture - Preliminary No growth after 24 hours. 12/11/24 10:40 Blood - Venous Blood Culture - Preliminary No growth after 24 hours. Procedures Date of Service Date of Service: 12/13/24 Progress Note: A&P Assessment and plan (1) Complication of feeding tube: Status: Acute Assessment and Plan: clinically improving ok to d/c later today Time Spent With Patient Time: Total time managing care of this patient today ____ minutes. Quality Stroke Does the patient have a stroke diagnosis?: No VTE Prior VTE?: No VTE Risk Level:: Medical - moderate - high VTE Device Contraindication: Treatment Not Indicated VTE Drug Contraindication: N/A - Med Ordered
--- NOTE | 2024-12-13 10:44 | MHC.CM.PN ---
IMM 12/12/24 G-tube changed by GI this am at bedside. Patient is discharged today to home self care. She has arranged for her spouse to provide transportation home.
--- NOTE | 2024-12-13 11:20 | OP_ITS ---
DATE OF SERVICE: 12/13/2024 SURGEON: Benny Sanabria MD INDICATIONS: Malfunctioning G-tube. PREOPERATIVE DIAGNOSIS: POSTOPERATIVE DIAGNOSIS: PROCEDURE PERFORMED: G-tube replacement. ESTIMATED BLOOD LOSS: COMPLICATIONS: ANESTHESIA: ASSISTANTS: SPECIMENS: DESCRIPTION OF PROCEDURE: A history and physical was performed. The risks and benefits of the procedure were explained to the patient. Informed consent was obtained. The patient was placed in the supine position in her hospital room and with assisting nurse. The previously placed Celestin catheter was deflated and removed. Next, an 18-Armenian replacement gastrostomy tube was identified, the balloon was tested, and the tip was lubricated. The G-tube was inserted through the established tract, and intragastric placement was verified. The balloon was inflated, and the tube was placed in good position with a drain sponge. Intragastric placement was verified by auscultation, and the patient was repositioned for comfort. There were no complications. IMPRESSION: G-tube replacement. RECOMMENDATION: Followup as needed. MD NAN Clifford/TARAL / [phone]
--- NOTE | 2024-12-13 13:35 | PM.DS ---
DS: Providers Provider Date of Service: 12/13/24 Date of admission: 12/11/24 14:51 Date of discharge: 12/13/24 Primary care physician: Carolina Robbins NP Consults: 12/11/24 15:02 Consult to General Surgery Routine Consulting Provider: [facility] [place] [facility] Reason for consultation: Gtube dislodgement 12/11/24 16:57 Consult to Wound Care Routine Reason for consultation: gtube skin breakdown 12/11/24 17:00 Consult to Gastroenterology Routine Consulting Provider: Benny Sanabria Reason for consultation: Gtube dislodgement DS: Diagnosis Discharge Diagnosis (1) Complication of feeding tube: Status: Acute DS: Summary Hospital Course Hospital Course: 4-year-old female presenting to the ER with pain and redness the G-tube site. She reported that she felt a lump above the area. She has had multiple episodes of her G-tube getting dislodged. She has been unable to flush it for at least 24 hours so she has not been able to take any liquids. Denied any fever, chills, nausea, vomiting, diarrhea. Abdominal and pelvic CT showed G-tube retraction into abdominal wall and in the stomach, no additional findings. All of her labs are within acceptable limits. She was seen by General surgery and will need to be seen by Gastroenterology. Celestin catheter was placed in the meantime to G-tube site. She will be admitted for further management and treatment of G-tube site infection and replacement. Hospital Course Patient admitted to general medical floor and started on Zosyn for cellulitis surrounding G-tube site. She was initially replaced with a Celestin; seen in consultation by GI who formally replaced G-tube. On the day of discharge, cellulitis surrounding G-tube site markedly improved and G-tube is functioning appropriately. She is cleared for DC from GI standpoint and she will be discharged on 1 week of Augmentin to finish treatment for cellulitis. She will follow up with the PCP as scheduled. Time Attestation Discharge Coordination Time (in mins): 35 Quality: Safe Use of Opioids Does Pt have an Active Cancer Diagnosis on the Problem List?: No Quality: Stroke Does the patient have a stroke diagnosis?: No Physical Exam Vital Signs: Vital Signs: Last Vital Signs Temp 98.1 F 12/13/24 07:29 Pulse 83 12/13/24 07:53 Resp 18 12/13/24 07:53 BP 139/65 12/13/24 07:29 Pulse Ox 92 12/13/24 07:29 O2 Del Method Room Air 12/13/24 07:29 BMI result Body Mass Index 31.5 Const: Other: Awake alert no acute distress Resp: Other: Clear to auscultation bilaterally no rales rhonchi or wheezes Cardio: Other: No S4; positive S1-S2; no S3 murmurs rubs or gallops GI: Other: Soft nontender nondistended normoactive bowel sounds. New G-tube site with minimal erythema new tube noted Extrem: Other: No edema bilaterally DS: Data Data Completed and Pending Labs on day of discharge: Preliminary micro results at discharge 12/11/24 10:37 Blood Culture - Preliminary Blood - Venous No growth after 48 hours. 12/11/24 10:40 Blood Culture - Preliminary Blood - Venous No growth after 48 hours. Discharge Plan Discharge Anticipated Discharge Date/Time: 12/13/24 13:30 Patient Disposition: Home, Self-Care Discharge Diagnosis: Complication of feeding tube Referrals: Carolina Robbins [employer]INE[employer] [Primary Care Provider, Internal Medicine] - 1 Week Discharge Medications: New amoxicillin-pot clavulanate 875-125 mg tablet 1 tab PO BID Qty: 14 0RF Continued amlodipine 5 mg tablet 5 mg PO DAILY Incruse Ellipta 62.5 mcg/actuation blister with device 1 inh inhalation DAILY albuterol sulfate 90 mcg/actuation HFA aerosol inhaler 2 puff inhalation Q6H PRN (Reason: Shortness Of Breath Or Wheezing) calcium carbonate-vitamin D3 600 mg-10 mcg (400 unit) tablet 1 tab PO BID nortriptyline 50 mg capsule 50 mg PO BEDTIME fluticasone propionate 50 mcg/actuation spray,suspension 1 - 2 spray intranasal DAILY PRN (Reason: Nasal Congestion) Discharge Orders: Discharge Order (Routine); Ordered 12/13/24 Ordered By: Yury Greer Diet: Advance to usual diet Activity on Discharge: As tolerated Stand Alone Forms: Patient Portal Discharge page Print Language: Estonian Care Plan Goals: Resume all medications as taken prior to hospitalization. Resume your tube feedings as prior to hospitalization Health Concerns: Augmentin 875 twice daily for 7 days to treat the infection around the G-tube Plan of Treatment: Follow up with PCP next available Assessment: See discharge summary
== END 2024-12-13 14:02 | disposition home or self-care (01) | DRG 394 ==
LOC: HO.ED 14:27 → HO.EDOVER 14:58 → HO.S3 19:29
PROVIDERS: Admitting Provider Nurse Practitioner Acute Care; Emergency Provider Emergency Medicine; PCP Nurse Practitioner Primary Care; Visit Provider Hospitalist
DX: K94.22 Gastrostomy infection (principal); L03.311 Cellulitis of abdominal wall; K94.23 Gastrostomy malfunction; I10 Essential (primary) hypertension; Z79.899 Other long term (current) drug therapy
CPT/HCPCS: 36415; 74177; 80048; 80076; 83605; 83690; 83735; 84145; 85025; 85027; 86140; 87040; 94640; 99285; J1644; J2270; J2405; J2543; J7120; Q9967

== ENCOUNTER → 2024-12-11 10:10 | Outpatient (BNV) | payer OTHER, SELFPAY | PROVIDERS: Emergency Provider Emergency Medicine; PCP Nurse Practitioner Primary Care; Visit Provider Radiology Diagnostic Radiology | DX: K57.30 Diverticulosis of large intestine without perforation or abscess without bleeding (principal); R10.84 Generalized abdominal pain | CPT/HCPCS: 74177 ==

== ENCOUNTER → 2024-12-11 14:51 | Outpatient (BNV) | payer OTHER, SELFPAY | PROVIDERS: Admitting Provider Nurse Practitioner Acute Care; Emergency Provider Emergency Medicine; PCP Nurse Practitioner Primary Care; Visit Provider Nurse Practitioner Acute Care | DX: K94.20 Gastrostomy complication, unspecified (principal) | CPT/HCPCS: 99223; 99232; 99239 ==